=== PATIENT | male | born 1960 | race Caucasian/White ===

== ENCOUNTER 2022-04-14 14:07 | Inpatient (IN) ==
--- NOTE | 2022-04-14 14:15 | DR.CP ---
HPI Time Seen Time Seen by Provider: 04/14/22 14:14 PE Vitals Vitals: Temperature 98.0 F Pulse Rate 44 Respiratory Rate 20 Blood Pressure 140/71 O2 Sat by Pulse Oximetry 94 ROR Labs Reviewed Result Diagrams: 04/23/22 04:40 04/23/22 04:40 Laboratory: 04/14/22 14:48 Blood Blood Culture - Final 04/14/22 15:22 Blood Blood Culture - Final WBC 7.3 X10^3/uL (3.6-10.0) 04/14/22 14:48 RBC 3.29 X10^6/uL (4.7-6.0) L 04/14/22 14:48 Hgb 11.6 g/dL (13.5-18.0) L 04/14/22 14:48 Hct 34.5 % (42.0-54.0) L 04/14/22 14:48 MCV 104.9 fL (80.0-100.0) H 04/14/22 14:48 MCH 35.3 pg (27.0-34.0) H 04/14/22 14:48 MCHC 33.6 g/dL (33.0-35.0) 04/14/22 14:48 RDW 14.6 % (11.6-16.5) 04/14/22 14:48 Plt Count 299 X10^3/uL (150.0-450.0) 04/14/22 14:48 MPV 6.8 fL (7.4-11.0) L 04/14/22 14:48 Neut % (Auto) 74.4 % (42.0-75.0) 04/14/22 14:48 Lymph % (Auto) 11.8 % (21.0-51.0) L 04/14/22 14:48 [place] % (Auto) 13.3 % (0.0-13.0) H 04/14/22 14:48 Eos % (Auto) 0.1 % (0.9-2.9) L 04/14/22 14:48 Baso % (Auto) 0.4 % (0.2-1.0) 04/14/22 14:48 Neut # (Auto) 5.4 x10^3/uL (2.2-4.8) H 04/14/22 14:48 Lymph # (Auto) 0.9 X10^3/uL (1.3-2.9) L 04/14/22 14:48 [place] # (Auto) 1.0 x10^3/uL (0.3-0.8) H 04/14/22 14:48 Eos # (Auto) 0.0 x10^3/uL (0.0-0.2) 04/14/22 14:48 Baso # (Auto) 0.0 X10^3/uL (0.0-0.1) 04/14/22 14:48 Absolute Nucleated RBC 0.1 /100WBC 04/14/22 14:48 D-Dimer 2.51 ug/ml (0.0-0.57) H 04/14/22 14:48 Sodium 131 mmol/L (136-145) L 04/14/22 14:48 Corrected Sodium 132 mmol/L (136-145) L 04/14/22 14:48 Potassium 4.7 mmol/L (3.5-5.1) 04/14/22 14:48 Chloride 96 mmol/L (98-107) L 04/14/22 14:48 Carbon Dioxide 27.0 mmol/L (21-32) 04/14/22 14:48 BUN 53 mg/dL (7-18) H 04/14/22 14:48 Creatinine 1.64 mg/dL (0.70-1.30) H 04/14/22 14:48 Est GFR (MDRD) Af Amer 55 (>60) L 04/14/22 14:48 Est GFR (MDRD) Non-Af 45 (>60) L 04/14/22 14:48 Glucose 134 mg/dL (65-99) H 04/14/22 14:48 Lactic Acid 1.5 mmol/L (0.4-2.0) 04/14/22 14:48 Calcium 9.0 mg/dL (8.5-10.1) 04/14/22 14:48 Corrected Calcium 9.9 mg/dL (8.5-10.1) 04/14/22 14:48 Total Bilirubin 0.60 mg/dL (0.2-1.0) 04/14/22 14:48 AST 26 Units/L (15-37) 04/14/22 14:48 ALT 27 Units/L (12-78) 04/14/22 14:48 Alkaline Phosphatase 88 Units/L (46-116) 04/14/22 14:48 Creatine Kinase 98 Units/L (39-308) 04/14/22 14:48 Troponin I High Sens 17.6 ng/L (4.0-60.0) 04/14/22 14:48 B-Natriuretic Peptide 529 pg/mL (0-79) H* 04/14/22 14:48 Total Protein 8.2 g/dL (6.4-8.2) 04/14/22 14:48 Albumin 2.9 g/dL (3.4-5.0) L 04/14/22 14:48 Globulin 5.3 g/dL (2.5-4.5) H 04/14/22 14:48 Albumin/Globulin Ratio 0.5 Ratio (1.1-2.1) L 04/14/22 14:48 SARS-CoV-2 (PCR) Negative (NEGATIVE) 04/14/22 16:47 Influenza Type A (PCR) Negative (NEGATIVE) 04/14/22 16:47 Influenza Type B (PCR) Negative (NEGATIVE) 04/14/22 16:47 RSV (PCR) Negative (NEGATIVE) 04/14/22 16:47 Opioid Opioid Risk Tool Total: 0 Total Score Risk Category: Low Risk Copyright: Manny SUTHERLAND predicting aberrant behaviors Discharge Plan Discharge Plan Patient Disposition: 09 ADMITTED INPATIENT Condition: Stable
[2022-04-14 15:04] LABS: BASOPHILS % (AUTO) 0.4 % (0.2-1.0); EOSINOPHILS % (AUTO) 0.1 % (0.9-2.9); HEMATOCRIT 34.5 % (42.0-54.0); HEMOGLOBIN 11.6 g/dL (13.5-18.0); LYMPHOCYTES # (AUTO) 0.9 X10^3/uL (1.3-2.9); LYMPHOCYTES % (AUTO) 11.8 % (21.0-51.0); MEAN CORPUSCULAR HEMOGLOBIN 35.3 pg (27.0-34.0); MEAN CORPUSCULAR HGB CONC 33.6 g/dL (33.0-35.0); MEAN CORPUSCULAR VOLUME 104.9 fL (80.0-100.0); MEAN PLATELET VOLUME 6.8 fL (7.4-11.0); MONOCYTES % (AUTO) 13.3 % (0.0-13.0); NEUTROPHILS # (AUTO) 5.4 x10^3/uL (2.2-4.8); NEUTROPHILS % (AUTO) 74.4 % (42.0-75.0); RED BLOOD COUNT 3.29 X10^6/uL (4.7-6.0); RED CELL DISTRIBUTION WIDTH 14.6 % (11.6-16.5); WHITE BLOOD COUNT 7.3 X10^3/uL (3.6-10.0)
[2022-04-14 15:30] LABS: ALBUMIN 2.9 g/dL (3.4-5.0); COR CA(FOR HYPOALB) 9.9 mg/dL (8.5-10.1); CREATININE 1.64 mg/dL (0.70-1.30); LACTIC ACID 1.5 mmol/L (0.4-2.0); TOTAL PROTEIN 8.2 g/dL (6.4-8.2)
--- NOTE | 2022-04-14 15:34 | RAD ---
HISTORYChest painSTUDYAP chestCOMPARISONNoneFINDINGSHeart size is within normal limits. The lungs are symmetrically inflated and clear of infiltrates. There is no evidence for pneumonia, pulmonary edema or pleural effusion.IMPRESSIONNo acute chest findings.Electronically signed by: FATMATA HUA (Apr 14, 2022 15:33:25)
[2022-04-14] MEDS ORDERED: DEMEROL INJ IVP ONE (15:43)
[2022-04-14] MEDS ORDERED: ZOFRAN INJ 4 MG VIAL IVP ONE (15:43)
[2022-04-14] MEDS ORDERED: ZOFRAN INJ 4 MG VIAL ONE (15:49)
[2022-04-14] MEDS ORDERED: DEMEROL INJ ONE (15:49)
[2022-04-14] MEDS ORDERED: PHARMACY CONSULT - VANCOMYCIN XX SCH (20:22)
[2022-04-14] MEDS ORDERED: ZOFRAN INJ 4 MG VIAL IVP PRN (20:22)
[2022-04-14] MEDS: NS 1,000 ML IV 1,000 ML IV SCH (20:49)
[2022-04-14] MEDS: DEMEROL INJ IVP PRN (20:55)
[2022-04-14] MEDS ORDERED: VANCOMYCIN IV *PREMIX 2 G/400 ML BAG 2 G/400 ML PIGGYBACK IV ONE (21:00)
[2022-04-15 02:40] LABS: BASOPHILS % (AUTO) 0.7 % (0.2-1.0); EOSINOPHILS % (AUTO) 0.2 % (0.9-2.9); HEMATOCRIT 32.6 % (42.0-54.0); HEMOGLOBIN 11.1 g/dL (13.5-18.0); LYMPHOCYTES # (AUTO) 0.9 X10^3/uL (1.3-2.9); LYMPHOCYTES % (AUTO) 18.5 % (21.0-51.0); MEAN CORPUSCULAR HEMOGLOBIN 35.4 pg (27.0-34.0); MEAN CORPUSCULAR VOLUME 104.3 fL (80.0-100.0); MEAN PLATELET VOLUME 6.6 fL (7.4-11.0); MONOCYTES # (AUTO) 0.7 x10^3/uL (0.3-0.8); MONOCYTES % (AUTO) 14.7 % (0.0-13.0); NEUTROPHILS # (AUTO) 3.1 x10^3/uL (2.2-4.8); NEUTROPHILS % (AUTO) 65.9 % (42.0-75.0); RED BLOOD COUNT 3.12 X10^6/uL (4.7-6.0); RED CELL DISTRIBUTION WIDTH 14.6 % (11.6-16.5); WHITE BLOOD COUNT 4.7 X10^3/uL (3.6-10.0)
[2022-04-15 02:48] LABS: ALANINE AMINOTRANSFERASE 27 Units/L (12-78); ALBUMIN 2.6 g/dL (3.4-5.0); ALKALINE PHOSPHATASE 83 Units/L (46-116); ASPARTATE AMINO TRANSFERASE 19 Units/L (15-37); BLOOD UREA NITROGEN 49 mg/dL (7-18); CALCIUM 8.9 mg/dL (8.5-10.1); CARBON DIOXIDE 26.5 mmol/L (21-32); CHLORIDE 99 mmol/L (98-107); COR NA(FOR HYPERGLY) 135 mmol/L (136-145); CREATININE 1.35 mg/dL (0.70-1.30); SODIUM 134 mmol/L (136-145); TOTAL PROTEIN 7.5 g/dL (6.4-8.2); eGFR NON BLACK RACES 57 (>60)
[2022-04-15] MEDS: DEMEROL INJ IVP PRN ×2 (04:50→09:05)
--- NOTE | 2022-04-15 07:29 | RAD ---
HISTORYChest painSTUDYChest AP [id number]/2022FINDINGSPati ent is rotated to the left. Heart is mildly enlarged. No congestive heart failure is noted. No acute alveolar infiltrates or pleural effusions are identified. Bony thorax is unremarkable.IMPRESSIONMild cardiomegaly without congestive heart failureLungs clearElectronically signed by: MANE TOURE (Apr 15, 2022 07:27:37)
[2022-04-15] MEDS ORDERED: VANCOMYCIN IV *PREMIX 1 G/200 ML BAG 1 G/200 ML PIGGYBACK IV SCH (07:30)
[2022-04-15] MEDS ORDERED: PERCOCET TAB 5/325 MG PO PRN (08:41)
[2022-04-15] MEDS: PERCOCET TAB 5/325 MG PO PRN ×2 (08:45→17:23)
[2022-04-15] MEDS ORDERED: ALLEGRA ONE (08:46)
[2022-04-15] MEDS: VANCOMYCIN IV *PREMIX 1 G/200 ML BAG 1 G/200 ML PIGGYBACK IV SCH ×3 (08:51→20:38)
[2022-04-15] MEDS: NORVASC TAB 5 MG PO SCH (08:52)
[2022-04-15] MEDS: ASPIRIN EC 81 MG PO SCH (08:52)
[2022-04-15] MEDS: NEURONTIN CAP 400 MG PO SCH ×3 (08:52→21:06)
[2022-04-15] MEDS: REGLAN TAB 10 MG PO SCH ×4 (08:52→20:08)
[2022-04-15] MEDS: ALLEGRA PO SCH (08:52)
[2022-04-15] MEDS: LOVENOX INJ 40 MG SYR SC SCH (08:53)
[2022-04-15] MEDS: EMTRICITABINE TENOFOVIR PO SCH (08:57)
[2022-04-15] MEDS: DARUNAVIR ETHANOLATE 600 MG PO SCH ×2 (08:57→20:17)
[2022-04-15] MEDS: VALGANCICLOVIR 450 MG PO SCH (08:57)
[2022-04-15] MEDS ORDERED: TORADOL 15 MG VIAL IVP PRN (08:58)
[2022-04-15] MEDS ORDERED: [UNRECOGNIZED DRUG - OTHER] PO SCH (09:00)
[2022-04-15] MEDS ORDERED: GLUCOSAMINE D3 BOSWELLIA SERR PO SCH (09:00)
[2022-04-15] MEDS ORDERED: MOMETASONE 0.1% TOP SCH (09:00)
[2022-04-15] MEDS ORDERED: TRUVADA PO ONE (09:00)
[2022-04-15] MEDS ORDERED: ISENTRESS PO ONE (09:00)
[2022-04-15] MEDS: PROTONIX TAB 40 MG PO SCH (09:05)
[2022-04-15 10:00] LABS: URIC ACID 12.5 mg/dL (3.5-7.2)
[2022-04-15] MEDS ORDERED: TORADOL 15 MG VIAL IVP SCH (11:00)
[2022-04-15] MEDS: NS 1,000 ML IV 1,000 ML IV SCH ×2 (12:03→20:52)
[2022-04-15] MEDS: ALDACTONE TAB 25 MG PO SCH (12:10)
[2022-04-15] MEDS: LASIX PO SCH ×2 (12:11→20:08)
--- NOTE | 2022-04-15 12:25 | DR.H&P ---
H&P - History & Physical for Day of: H&P Date: 04/14/22 - Chief Complaint Chief Complaint: CHEST PAIN, RIGHT WRIST PAIN, BLE SWELLING, REDNESS, DRAINAGE - History of Present Illness History of Present Illness: IS A 61 YEAR OLD WHITE MALE. HE IS A PATIENT OF [facility]. HE PRESENTED TO THE ER WITH COMPLAINTS OF CHEST PAIN WITH RADIATION TO THE RIGHT ARM AND WRIST. HE DESCRIBES CHEST PAIN DULL, INTERMITTENT, AND RATED IT A 4/10 ON ARRIVAL. HE DESCRIBED RIGHT ARM AND WRIST PAIN DULL, THROBBING, AND RATED IT A 9/10. PATIENT WAS ALSO NOTED TO HAVE LOWER EXTREMITY 2+ PITTING EDEMA, ERRYTHEMA, AND WEEPING. SKIN WAS NOTED TO BE SCALY. HIS PMH INCLUDES: CHF, COPD, HTN, RENAL DISEASE, ATRIAL FIBRILLATION, AND HIV. ON ARRIVAL, HIS VITALS WERE: 98.0-20-60-94%-140/71. LABS WERE OBTAINED. WBC 7.3, RBC 3.29, HGB 11.6, HCT 34.5, PLT COUNT 299, D-DIMER 2.51, SODIUM 132, POTASSIUM 4.7, CHLORIDE 96, BUN 53, CREATININE 1.64, GLUCOSE 134, LACTIC ACID 1.5, URIC ACID 12.5, CALCIUM 9.0, AST 26, ALT 27, ALK PHOS 88, CREATINE KINASE 98, TROPONIN 17.6, BNP 529, TOTAL PROTEIN 8.2, ALBUMIN 2.9, CRP 128.70. COVID, INFLUENZA, AND RSV NEGATIVE. BLOOD CULTURES WERE SET UP. EKG OBTAINED AND REVEALED: NSR WITH HR 66. A CHEST XRAY WAS OBTAINED AND REVEALED: Heart size is within normal limits. The lungs are symmetrically inflated and clear of infiltrates. There is no evidence for pneumonia, pulmonary edema or pleural effusion. IN THE ER, SHE WAS GIVEN DEMEROL 25MG IV X 1, ZOFRAN 4MG IV X 1, VANCOMYCIN 2G IV X 1. HE WAS ADMITTED TO THE HOSPTIAL FOR FURTHER EVALUATION AND TREATMENT OF CHEST PAIN RULE OUT ACUTE ME, BILATERAL LOWER EXTREMITY CELLULITIS, AND GOUT FLARE. HE WAS STARTED ON NORMAL SALINE AT KVO, VANCOMYCIN 1G IV Q8H, TORADOL 15MG IV Q8H, DILAUDID 2MG IV Q6H PRN, ZOFRAN 4MG IV Q8H, LOVENOX 40MG SC DAILY, COLACE 100MG BID, MILK OF MAGNESIA 30ML PO BID. HIS HOME MEDICATIONS OF NORVASC, ECOTRIN, COLEMAN, LASIX, NEURONTIN, REGLAN, PROTONIX, PERCOCET, ALDACTONE, DESYREL, KENALOG CREAM, AND HIS ANTIVIRALS WERE RESUMED. OTHERWISE, WE PLAN TO FOLLOW-UP WITH AM LABS AND CONTINUE TO MONITOR. TIME SPENT ON CLINICAL ASSESSMENT, REVIWING LABS AND IMAGING, DECISION MAKING, AND DOCUMENTATION GREATER THAN 75 MINUTES. - Past Medical History Past Medical History: CHF, COPD, Hypertension, Renal Disease - Past Surgical History Surgical History: Cholecystectomy, Ortho Surgery, Other - Family History Family Medical History: Cancer, Coronary Artery Disease, Hypertension - Social History Does patient currently use any type of tobacco product: Yes Have you used tobacco products in the last 12 months: Yes Type of Tobacco Use: Cigarettes Does any household member use tobacco: No Alcohol Use: Occasionally Drug Use: None - Medications Home Medications: No Known Drug Allergies Allergy (Verified 04/14/22 18:25) CONTINUE taking the following medications amlodipine 5 mg tablet 5 mg PO QDAY 04/14/22 [History] aspirin 81 mg tablet,delayed release 81 mg PO QDAY 04/14/22 [History] chlorthalidone 25 mg tablet 25 mg PO QDAY 04/14/22 [History] darunavir ethanolate 600 mg tablet (Prezista) 600 mg PO BID 04/14/22 [History] emtricitabine 200 mg-tenofovir disoproxil fumarate 300 mg tablet 1 tab PO QDAY 04/14/22 [History] fexofenadine 180 mg tablet 180 mg PO QDAY 04/14/22 [History] furosemide 40 mg tablet 40 mg PO BID 04/14/22 [History] gabapentin 800 mg tablet 800 mg PO TID 04/14/22 [History] glucosamine BUk-W0-Csimgdhib true 1,500 mg-400 unit-100 mg tablet (Osteo Bi- Flex (5-Loxin)) 1 tab PO QDAY 04/14/22 [History] ketoconazole 2 % shampoo 1 applic topical DAILY 04/14/22 [History] metoclopramide HCl 10 mg tablet 10 mg PO QID 04/14/22 [History] mometasone 0.1 % topical cream 1 applic topical DIRECTED 04/14/22 [History] oxycodone-acetaminophen 10 mg-325 mg tablet 1 tab PO Q4H PRN 04/14/22 [History] pantoprazole 40 mg tablet,delayed release 40 mg PO QDAY 04/14/22 [History] raltegravir 400 mg tablet (Isentress) 400 mg PO BID 04/14/22 [History] ritonavir 100 mg tablet 100 mg PO BID 04/14/22 [History] spironolactone 25 mg tablet 25 mg PO QDAY 04/14/22 [History] trazodone 150 mg tablet 150 mg PO QPM 04/14/22 [History] umeclidinium 62.5 mcg/actuation blister powder for inhalation (Incruse Ellipta) 1 puff inhalation QDAY 04/14/22 [History] valganciclovir 450 mg tablet 900 mg PO QDAY 04/14/22 [History] - Review of Systems Constitutional: Weakness Eyes: No Symptoms Reported ENT: No Symptoms Reported Respiratory: Shortness of Breath Cardiovascular: Chest Pain Gastrointestinal: No Symptoms Reported Genitourinary: No Symptoms Reported Musculoskeletal: See HPI, Arm Pain (RIGHT ARM PAIN, RIGHT WRIST PAIN ) Skin: See HPI Neurological: Weakness - Physical Exam Vital Signs: Temperature 98.4 F Pulse Rate [Apical] 47 Pulse Rate 48 Respiratory Rate 18 Blood Pressure [Left Arm] 121/61 Blood Pressure 140/71 O2 Sat by Pulse Oximetry 94 Oriented: Normal Eyes: Normal Ear: Normal Nose: Normal Throat: Normal Respiratory: Diminished Throughout Cardiovascular: Normal : Normal Auscultation: Bowel Sounds: Normal Palpation: Normal Tenderness: Normal Skin: Red, Tender, Hot Musculoskeletal: Right, Forearm, Wrist, Swelling, Tender Psychiatric: Normal Mood Description: Calm Affect: Normal Speech Pattern: Clear - Assessment/Plan (1) Bilateral lower leg cellulitis Status: Acute Plan: ADMIT, NORMAL SALINE AT KVO, VANCOMYCIN 1G IV Q8H, TORADOL 15MG IV Q8H, DILAUDID 2MG IV Q6H PRN, ZOFRAN 4MG IV Q8H, LOVENOX 40MG SC DAILY, COLACE 100MG BID, MILK OF MAGNESIA 30ML PO BID. MONITOR LABS (2) Gout flare Qualifiers: Gout site: wrist Encounter type: initial encounter Status: Acute Plan: SERIAL CARDIAC ENZYMES AND EKGS (3) Chest pain, rule out acute myocardial infarction Status: Acute (4) CHF (congestive heart failure) Qualifiers: Heart failure type: unspecified Heart failure chronicity: chronic Qualified Code(s): I50.9 - Heart failure, unspecified Status: Chronic (5) COPD (chronic obstructive pulmonary disease) Qualifiers: COPD type: unspecified COPD Qualified Code(s): J44.9 - Chronic obstructive pulmonary disease, unspecified Status: Chronic (6) HTN (hypertension) Qualifiers: Hypertension type: primary hypertension Qualified Code(s): I10 - Essential (primary) hypertension Status: Chronic (7) Renal disease Status: Chronic (8) HIV (human immunodeficiency virus infection) Qualifiers: HIV symptom status: unspecified Qualified Code(s): B20 - Human immunodeficiency virus [HIV] disease Status: Chronic - Allergies Allergies/Adverse Reactions: Allergies Allergy/AdvReac Type Severity Reaction Status Date / Time No Known Drug Allergies Allergy Verified 04/14/22 18:25
[2022-04-15] MEDS ORDERED: DILAUDID INJ IVP ONE (12:55)
--- NOTE | 2022-04-15 13:53 | RAD ---
HISTORYCENTRAL LINE PLACEMENT.br AFIB, HIV, CHF, COPD, HTN, RENAL DISEASE, ORTHO.brSTUDYCHEST, 1 VIEWCOMPARISONAugust 2021.FINDINGSThe trachea is midline. The cardiac silhouette is enlarged. Chronic lung changes remain. There is a abnormally position right-sided CVL seen in place which extends into the right neck region and which should be repositioned into the SVC for optimal positioning. No pneumothorax is identified on this examination, however. The remaining lungs are clear without focal infiltrate or effusion. The bony thorax is unremarkable.IMPRESSIONAs above.Electronically signed by: YASIR WEN III (Apr 15, 2022 13:52:24)
--- NOTE | 2022-04-15 14:59 | RAD ---
HISTORYPain and swelling right armSTUDYRight wrist three viewsCOMPARISONNoneFINDINGSThere is no evidence for fracture or other recent injury. Joint spaces are maintained with no erosion, specific arthritis, bone destruction or soft tissue calcification.IMPRESSIONNo acute findings.Electronically signed by: FATMATA HUA (Apr 15, 2022 14:58:44)
--- NOTE | 2022-04-15 15:02 | RAD ---
HISTORYArm swellingSTUDYRight forearm two viewsCOMPARISONNoneFINDINGSThe radius and ulna appear normal and there is no evidence for fracture, displacement or osteolytic involvement. Soft tissue swelling of the forearm is suggested.IMPRESSIONNo osseous abnormality demonstrated.Electronically signed by: FATMATA HUA (Apr 15, 2022 15:00:38)
[2022-04-15] MEDS ORDERED: INDOCIN CAP 25 MG PO PRN (17:57)
[2022-04-15] MEDS ORDERED: INDOCIN CAP 25 MG PO ONE (18:05)
[2022-04-15] MEDS: COLACE CAP 100 MG PO SCH (20:08)
[2022-04-15] MEDS: DESYREL PO SCH (20:08)
[2022-04-15] MEDS: DILAUDID INJ IVP PRN (20:13)
[2022-04-15] MEDS: MILK OF MAGNESIA PO SCH (20:17)
[2022-04-16] MEDS: PERCOCET TAB 5/325 MG PO PRN ×3 (00:20→17:24)
[2022-04-16] MEDS: DILAUDID INJ IVP PRN ×4 (03:56→21:50)
[2022-04-16 04:24] LABS: HEMOGLOBIN 10.9 g/dL (13.5-18.0); WHITE BLOOD COUNT 3.9 X10^3/uL (3.6-10.0)
[2022-04-16 04:27] LABS: BASOPHILS % (AUTO) 0.7 % (0.2-1.0); EOSINOPHILS % (AUTO) 0.3 % (0.9-2.9); HEMATOCRIT 31.7 % (42.0-54.0); MEAN CORPUSCULAR HEMOGLOBIN 35.6 pg (27.0-34.0); MEAN CORPUSCULAR HGB CONC 34.4 g/dL (33.0-35.0); MEAN CORPUSCULAR VOLUME 103.7 fL (80.0-100.0); MEAN PLATELET VOLUME 6.7 fL (7.4-11.0); MONOCYTES # (AUTO) 0.6 x10^3/uL (0.3-0.8); NEUTROPHILS # (AUTO) 2.2 x10^3/uL (2.2-4.8); RED BLOOD COUNT 3.05 X10^6/uL (4.7-6.0); RED CELL DISTRIBUTION WIDTH 14.3 % (11.6-16.5)
[2022-04-16 04:32] LABS: ALANINE AMINOTRANSFERASE 35 Units/L (12-78); ALBUMIN 2.5 g/dL (3.4-5.0); ALKALINE PHOSPHATASE 77 Units/L (46-116); ASPARTATE AMINO TRANSFERASE 22 Units/L (15-37); BLOOD UREA NITROGEN 40 mg/dL (7-18); CALCIUM 8.7 mg/dL (8.5-10.1); CARBON DIOXIDE 28.1 mmol/L (21-32); CHLORIDE 101 mmol/L (98-107); COR CA(FOR HYPOALB) 9.9 mg/dL (8.5-10.1); CREATININE 1.33 mg/dL (0.70-1.30); MAGNESIUM 1.9 mg/dL (1.7-2.9); SODIUM 136 mmol/L (136-145); TOTAL PROTEIN 7.4 g/dL (6.4-8.2); eGFR NON BLACK RACES 58 (>60)
[2022-04-16 04:36] LABS: VANCOMYCIN,TROUGH 17.5 ug/mL (15-20)
[2022-04-16] MEDS: VANCOMYCIN IV *PREMIX 1 G/200 ML BAG 1 G/200 ML PIGGYBACK IV SCH ×3 (04:44→22:08)
[2022-04-16] MEDS: NEURONTIN CAP 400 MG PO SCH ×3 (04:59→21:45)
[2022-04-16] MEDS ORDERED: PHARMACY COMMENT IV NR (05:30)
[2022-04-16] MEDS ORDERED: ALLEGRA ONE (08:20)
[2022-04-16] MEDS ORDERED: ISENTRESS PO ONE (09:00)
[2022-04-16 10:31] VITALS: BMI 38.5
[2022-04-16] MEDS: REGLAN TAB 10 MG PO SCH ×4 (13:10→21:47)
[2022-04-16] MEDS: LOVENOX INJ 40 MG SYR SC SCH (13:48)
--- NOTE | 2022-04-16 14:06 | RAD ---
CHEST, 1 VIEWHISTORY: Line placementStudy: Single view of the chest.Comparison: NoneFindings:No change in the appearance of cardiopulmonary structures. A right central catheter terminates over the expected area of the SVC.IMPRESSION:1.No change in the appearance of cardiopulmonary structures.2. A right central catheter terminating over the expected area of the SVC.Electronically signed by: MERVIN OLMEDO (Apr 16, 2022 14:04:34)
[2022-04-16] MEDS: AQUAPHOR TOP SCH (15:04)
[2022-04-16] MEDS: GENTAMICIN TOPICAL CRM TOP SCH ×2 (15:05→21:48)
[2022-04-16] MEDS: VALGANCICLOVIR 450 MG PO SCH (15:05)
[2022-04-16] MEDS: LASIX PO SCH ×2 (15:06→21:46)
[2022-04-16] MEDS: ALLEGRA PO SCH (15:08)
[2022-04-16] MEDS: ALDACTONE TAB 25 MG PO SCH (15:08)
[2022-04-16] MEDS: NORVASC TAB 5 MG PO SCH (15:09)
[2022-04-16] MEDS: PROTONIX TAB 40 MG PO SCH (15:09)
[2022-04-16] MEDS: KENALOG CREAM TOP SCH (15:10)
[2022-04-16] MEDS: DARUNAVIR ETHANOLATE 600 MG PO SCH (15:11)
[2022-04-16] MEDS: ASPIRIN EC 81 MG PO SCH (15:11)
--- NOTE | 2022-04-16 15:17 | CT ---
HISTORYchest pain, elevated ddimerSTUDYCTA CHESTCOMPARISONChest radiograph from same day.TECHNIQUECTA chest protocol with axial images from the thoracic inlet to upper abdomen with IV contrast. Sagittal and coronal reformats and MIP images were created. Automated exposure control was utilized.FINDINGSThe visualized thyroid gland appears benign. Mildly atherosclerotic normal caliber thoracic aorta. Mild motion artifact limits evaluation but there is likely a filling defect in the anterior branch of the left lower lobe pulmonary artery image 81 and image 92 of series 4. No CT evidence of right heart strain. The heart is normal in size. No pericardial effusion. No pathologic adenopathy in the thorax. Status post cholecystectomy. There are chronic bilateral rib fractures, more numerous on the left. No acute osseous abnormality. Chronic compression deformity at L1 secondary to inferior endplate Schmorl's node. The trachea and mainstem bronchi appear patent. Mild COPD. 4 x 2 mm left upper lobe pulmonary nodule image 25 series 5. There are multiple other scattered bilateral less than 6 mm average axial dimension pulmonary nodules. Opacity likely subsegmental atelectasis along the anterior margin of the left major fissure in the lingula image 83 series 5. 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 Consider 3-6 months follow-up to document stability.Electronically signed by: Darrell Stanley (Apr 16, 2022 15:15:52)
[2022-04-16] MEDS: INDOCIN CAP 25 MG PO SCH (15:47)
[2022-04-16 16:50] LABS: ERYTHROCYTE SEDIMENTATION RATE 109 MM/HOUR (0-15)
[2022-04-16 17:48] LABS: T4 (THYROXINE) 7.7 ug/dL (4.7-13.3); TSH (3RD GENERATION) 1.059 uIU/mL (0.358-3.74)
[2022-04-16] MEDS: NS 1,000 ML IV 1,000 ML IV SCH (18:00)
[2022-04-16] MEDS: EMTRICITABINE TENOFOVIR PO SCH (18:34)
--- NOTE | 2022-04-16 18:36 | VAS ---
Ultrasound bilateral lower extremity venous DopplerIndication: Swelling.TECHNIQUEDynamic grayscale, color spectral Doppler imaging through the bilateral lower extremity veins compression techniques spectral analysisFINDINGSThe bilateral common femoral veins, superficial femoral veins throughout their lengths and popliteal veins are patent and compressible with normal respiratory phasicity. Bilateral posterior tibial veins are patentIMPRESSIONNo left lower extremity or right lower extremity deep vein thrombosisElectronically signed by: RAY LA (Apr 16, 2022 18:35:50)
[2022-04-16] MEDS ORDERED: PHARMACY COMMENT IV ONE (21:30)
[2022-04-16] MEDS: MILK OF MAGNESIA PO SCH (21:45)
[2022-04-16] MEDS: COLACE CAP 100 MG PO SCH (21:46)
[2022-04-16] MEDS: ELIQUIS PO SCH (21:46)
[2022-04-16] MEDS: DESYREL PO SCH (21:46)
[2022-04-16] MEDS: ISENTRESS PO SCH (21:47)
[2022-04-16 21:48] LABS: CREATININE 0.95 mg/dL (0.70-1.30)
[2022-04-16 21:53] LABS: VANCOMYCIN,TROUGH 21.7 ug/mL (15-20)
[2022-04-17] MEDS: NS 1,000 ML IV 1,000 ML IV SCH ×2 (00:02→13:35)
[2022-04-17] MEDS ORDERED: VANCOMYCIN IV *PREMIX 1 G/200 ML BAG 1 G/200 ML PIGGYBACK IV SCH (01:00)
[2022-04-17] MEDS: PERCOCET TAB 5/325 MG PO PRN ×3 (01:40→19:44)
[2022-04-17 05:34] LABS: BASOPHILS % (AUTO) 0.6 % (0.2-1.0); EOSINOPHILS % (AUTO) 0.6 % (0.9-2.9); HEMATOCRIT 32.6 % (42.0-54.0); LYMPHOCYTES # (AUTO) 0.9 X10^3/uL (1.3-2.9); LYMPHOCYTES % (AUTO) 22.3 % (21.0-51.0); MEAN CORPUSCULAR HEMOGLOBIN 35.1 pg (27.0-34.0); MEAN CORPUSCULAR HGB CONC 33.7 g/dL (33.0-35.0); MEAN PLATELET VOLUME 6.7 fL (7.4-11.0); MONOCYTES # (AUTO) 0.6 x10^3/uL (0.3-0.8); MONOCYTES % (AUTO) 15.6 % (0.0-13.0); NEUTROPHILS # (AUTO) 2.5 x10^3/uL (2.2-4.8); NEUTROPHILS % (AUTO) 60.9 % (42.0-75.0); RED BLOOD COUNT 3.13 X10^6/uL (4.7-6.0); WHITE BLOOD COUNT 4.1 X10^3/uL (3.6-10.0)
[2022-04-17 05:41] LABS: ALANINE AMINOTRANSFERASE 48 Units/L (12-78); ALBUMIN 2.6 g/dL (3.4-5.0); ALKALINE PHOSPHATASE 78 Units/L (46-116); ASPARTATE AMINO TRANSFERASE 28 Units/L (15-37); BLOOD UREA NITROGEN 34 mg/dL (7-18); CALCIUM 8.7 mg/dL (8.5-10.1); CARBON DIOXIDE 30.1 mmol/L (21-32); CHLORIDE 102 mmol/L (98-107); COR CA(FOR HYPOALB) 9.8 mg/dL (8.5-10.1); CREATININE 1.15 mg/dL (0.70-1.30); SODIUM 136 mmol/L (136-145); TOTAL PROTEIN 7.7 g/dL (6.4-8.2); eGFR NON BLACK RACES > 60 (>60)
[2022-04-17] MEDS: DILAUDID INJ IVP PRN ×4 (05:50→22:45)
[2022-04-17] MEDS: NEURONTIN CAP 400 MG PO SCH (05:50)
--- NOTE | 2022-04-17 08:11 | RAD ---
HISTORYShort of breathSTUDYCHEST, 1 [id number]/24/2022FINDINGSThe lungs are clear. No pneumothorax or significant effusion.Heart size is normal.Bones are unremarkable. [EKG leads are noted. Right subclavian central venous catheter is in the expected location of the superior vena cava. ]IMPRESSION1. No significant abnormalityElectronically signed by: Shayne Vidal (Apr 17, 2022 08:10:00)
[2022-04-17] MEDS ORDERED: TRUVADA PO SCH (09:00)
[2022-04-17] MEDS: ELIQUIS PO SCH ×2 (09:32→21:55)
[2022-04-17] MEDS: ALDACTONE TAB 25 MG PO SCH (09:32)
[2022-04-17] MEDS: CHLORTHALIDONE PO SCH (09:33)
[2022-04-17] MEDS: GENTAMICIN TOPICAL CRM TOP SCH ×2 (09:34→21:29)
[2022-04-17] MEDS: INDOCIN CAP 25 MG PO SCH ×2 (09:34→21:31)
[2022-04-17] MEDS: LASIX PO SCH ×2 (09:35→21:55)
[2022-04-17] MEDS: KENALOG CREAM TOP SCH (09:35)
[2022-04-17] MEDS: VANCOMYCIN IV *PREMIX 1 G/200 ML BAG 1 G/200 ML PIGGYBACK IV SCH ×2 (09:36→21:55)
[2022-04-17] MEDS: PATIENT'S HOME MEDICATION PO SCH ×13 (10:10→21:31)
[2022-04-17] MEDS: ASPIRIN EC 81 MG PO SCH (10:12)
[2022-04-17] MEDS: REGLAN TAB 10 MG PO SCH (10:12)
[2022-04-17] MEDS: ALLEGRA PO SCH (10:12)
[2022-04-17] MEDS: NORVASC TAB 5 MG PO SCH (10:13)
[2022-04-17] MEDS: PROTONIX TAB 40 MG PO SCH (10:13)
[2022-04-17] MEDS: ISENTRESS PO SCH (10:13)
--- NOTE | 2022-04-17 14:15 | PCM.PROG ---
Progress Note - Progress Note for Day of Date of Exam: 04/16/22 - Subjective Subjective: IS CURRENTLY INPATIENT STATUS FOR TREATMENT OF BILATERAL LOWER LEG CELLULITIS, GOUT FALRE, AND CHEST PAIN RULE OUT ACUTE NE. HE HAS A PMH OF CHF, COPD, HTN, RENAL DISEASE, AND HIV. TODAY, HE IS ALERT AND ORIENTED, LYING IN BED ON MORNING ROUNDS. HE DENIES CHEST PAIN THIS MORNING. HE COMPLAINS OF WEAKNESS AND SHORTNESS OF BREATH AT TIMES. HE ALSO COMPLAINS OF GENERALIZED PAIN. ON EXAMINATION, HE IS BRADYCARDIC WITH HR IN THE 30s-40s. HR HAS BEEN IN THE 30s-50s SINCE YESTERDAY. BILATERAL LUNGS ARE NOTED WITH DIMINISHED LUNG SOUNDS THROUGHOUT. ABDOMEN IS ROUND, SOFT, AND NON-TENDER WITH NORMAL BOWEL SOUNDS NOTED IN ALL QUADRANTS. BILATERAL LOWER EXTREMITIES ARE NOTED WITH ERYT NIMESH, EDEMA, AND 1+ PITTING EDEMA. SOME WEEPING IS NOTED TO RLE. HIS VITALS THIS MORNING ARE: 98.3-40-17-99%-121/60. HE IS UTILIZING OXYGEN VIA NASAL CANNULA AT 2 LPM. LABS WERE OBTAINED. WBC 3.9, RBC 3.05, HGB 10.9, HCT 31.7, SODIUM 136, POTASSIUM 5.1, BUN 40, CREATININE 1.33, GLUCOSE 100, BNP 937, TOTAL PROTEIN 7.4, ALBUMIN 2.5, CRP 63.90. BLOOD CULTURES ARE PENDING. A CHEST CTA WAS OBTAINED THI S MORNING. IT REVEALED: Suspect pulmonary embolus in the anterior segment of the left lower lobe. No CT evidence of right heart strain. Mild COPD. Multiple bilateral less than 6 mm pulmonary nodules may be due to DIP with smoking related lung disease. Consider 3-6 months follow-up to document stability. HE IS CURRENTLY RECEIVING NORMAL SALINE AT [facility], VANCOMYCIN 1G IV Q8H, TORADOL 15MG IV Q8H, DILAUDID 2MG IV Q6H PRN, ZOFRAN 4MG IV Q8H, LOVENOX 40MG SC DAILY, COLACE 100MG BID, MILK OF MAGNESIA 30ML PO BID. HIS HOME MEDICATIONS OF NORVASC, ECOTRIN, COLEMAN, LASIX, NEURONTIN, REGLAN, PROTONIX, PERCOCET, ALDACTONE, DESYREL, KENALOG CREAM, AND HIS ANTIVIRALS WERE RESUMED. TODAY, WE WILL ADD ELIQUIS 10MG PO BID, GENTAMICIN CREAM BID TO LOWER EXTREMITIES, AND AQUAPHOR BID. HE IS NOT ON ANY MEDICATIONS THAT SHOULD BE CAUSING THE LOW HEARTRATE. WE WILL CONSULT CARDIOLOGY DUE TO PERSISTENT BRADYCARDIA. OTHERWISE, WE PLAN TO FOLLOW-UP WITH AM LABS AND CONTINUE TO MONITOR. TIME SPENT ON CLINICAL A SSESSMENT, REVIWING LABS AND IMAGING, DECISION MAKING, AND DOCUMENTATION GREATER THAN 45 MINUTES. - Past Medical Family Social History Past Med/Fam/Surg Hx: No changes since H&P Allergies: Allergies No Known Drug Allergies Allergy (Verified 04/14/22 18:25) - Review of Systems ROS: No change since H&P - Vital Signs and I&O's Vital Signs: Temperature 97.8 F Pulse Rate [Apical] 47 Pulse Rate 50 Respiratory Rate 20 Blood Pressure [Left Arm] 121/61 Blood Pressure 138/63 O2 Sat by Pulse Oximetry 96 Intake and Output: Intake & Output 04/15/22 04/16/22 04/17/22 04/18/22 11:59 11:59 11:59 11:59 Intake Total 1248 / 1248 1376 / 1376 2527 / 2527 Output Total 1250 / 1250 1500 / 1500 3150 / 3150 Balance -2 / -2 -124 / -124 -623 / -623 - Physical Exam Oriented: Normal Eyes: Normal Ear: Normal Nose: Normal Throat: Normal Respiratory: Generalized, Diminished Cardiovascular: Edema (BLE 1+ PITTING EDEMA ) : Normal Auscultation: Bowel Sounds: Normal Palpation: Normal Tenderness: Normal Skin: Red, Tender, Hot Musculoskeletal: Right, Forearm, Wrist, Swelling, Tender Psychiatric: Normal Mood Description: Calm Affect: Normal Speech Pattern: Clear, Appropriate - Laboratory and Diagnostics Result Diagrams: 04/17/22 04:40 04/17/22 04:40 Labs: 04/14/22 15:22 Blood Blood Culture - Preliminary 04/14/22 14:48 Blood Blood Culture - Preliminary Laboratory WBC 4.1 X10^3/uL (3.6-10.0) 04/17/22 04:40 RBC 3.13 X10^6/uL (4.7-6.0) L 04/17/22 04:40 Hgb 11.0 g/dL (13.5-18.0) L 04/17/22 04:40 Hct 32.6 % (42.0-54.0) L 04/17/22 04:40 MCV 104.0 fL (80.0-100.0) H 04/17/22 04:40 MCH 35.1 pg (27.0-34.0) H 04/17/22 04:40 MCHC 33.7 g/dL (33.0-35.0) 04/17/22 04:40 RDW 14.0 % (11.6-16.5) 04/17/22 04:40 Plt Count 313 X10^3/uL (150.0-450.0) 04/17/22 04:40 MPV 6.7 fL (7.4-11.0) L 04/17/22 04:40 Neut % (Auto) 60.9 % (42.0-75.0) 04/17/22 04:40 Lymph % (Auto) 22.3 % (21.0-51.0) 04/17/22 04:40 [place] % (Auto) 15.6 % (0.0-13.0) H 04/17/22 04:40 Eos % (Auto) 0.6 % (0.9-2.9) L 04/17/22 04:40 Baso % (Auto) 0.6 % (0.2-1.0) 04/17/22 04:40 Neut # (Auto) 2.5 x10^3/uL (2.2-4.8) 04/17/22 04:40 Lymph # (Auto) 0.9 X10^3/uL (1.3-2.9) L 04/17/22 04:40 [place] # (Auto) 0.6 x10^3/uL (0.3-0.8) 04/17/22 04:40 Eos # (Auto) 0.0 x10^3/uL (0.0-0.2) 04/17/22 04:40 Baso # (Auto) 0.0 X10^3/uL (0.0-0.1) 04/17/22 04:40 Absolute Nucleated RBC 0.0 /100WBC 04/17/22 04:40 ESR 109 MM/HOUR (0-15) H 04/16/22 16:15 D-Dimer 2.51 ug/ml (0.0-0.57) H 04/14/22 14:48 Sodium 136 mmol/L (136-145) 04/17/22 04:40 Corrected Sodium TNP 04/17/22 04:40 Potassium 5.6 mmol/L (3.5-5.1) H 04/17/22 04:40 Chloride 102 mmol/L (98-107) 04/17/22 04:40 Carbon Dioxide 30.1 mmol/L (21-32) 04/17/22 04:40 BUN 34 mg/dL (7-18) H 04/17/22 04:40 Creatinine 1.15 mg/dL (0.70-1.30) 04/17/22 04:40 Est GFR (MDRD) Af Amer > 60 (>60) 04/17/22 04:40 Est GFR (MDRD) Non-Af > 60 (>60) 04/17/22 04:40 Glucose 90 mg/dL (65-99) 04/17/22 04:40 Lactic Acid 1.5 mmol/L (0.4-2.0) 04/14/22 14:48 Uric Acid 11.0 mg/dL (3.5-7.2) H 04/17/22 04:40 Calcium 8.7 mg/dL (8.5-10.1) 04/17/22 04:40 Corrected Calcium 9.8 mg/dL (8.5-10.1) 04/17/22 04:40 Magnesium 1.9 mg/dL (1.7-2.9) 04/16/22 04:00 Total Bilirubin 0.30 mg/dL (0.2-1.0) 04/17/22 04:40 AST 28 Units/L (15-37) 04/17/22 04:40 ALT 48 Units/L (12-78) 04/17/22 04:40 Alkaline Phosphatase 78 Units/L (46-116) 04/17/22 04:40 Creatine Kinase 76 Units/L (39-308) 04/15/22 02:16 Troponin I High Sens 17.5 ng/L (4.0-60.0) 04/15/22 02:16 C-Reactive Protein 63.90 mg/L (0-3.0) H 04/16/22 16:15 B-Natriuretic Peptide 1200 pg/mL (0-79) H* 04/17/22 04:40 Total Protein 7.7 g/dL (6.4-8.2) 04/17/22 04:40 Albumin 2.6 g/dL (3.4-5.0) L 04/17/22 04:40 Globulin 5.1 g/dL (2.5-4.5) H 04/17/22 04:40 Albumin/Globulin Ratio 0.5 Ratio (1.1-2.1) L 04/17/22 04:40 Thyroxine (T4) 7.7 ug/dL (4.7-13.3) 04/16/22 16:15 TSH 3rd Generation 1.059 uIU/mL (0.358-3.74) 04/16/22 16:15 Vancomycin Trough 21.7 ug/mL (15-20) H* 04/16/22 21:13 Digoxin 0.30 ng/mL (0.9-2) L 04/17/22 04:40 SARS-CoV-2 (PCR) Negative (NEGATIVE) 04/14/22 16:47 Influenza Type A (PCR) Negative (NEGATIVE) 04/14/22 16:47 Influenza Type B (PCR) Negative (NEGATIVE) 04/14/22 16:47 RSV (PCR) Negative (NEGATIVE) 04/14/22 16:47 - Plan (1) Bilateral lower leg cellulitis Status: Acute Plan: NORMAL SALINE AT KVO, VANCOMYCIN 1G IV Q8H, TORADOL 15MG IV Q8H, DILAUDID 2MG IV Q6H PRN, ZOFRAN 4MG IV Q8H, LOVENOX 40MG SC DAILY, COLACE 100MG BID, MILK OF MAGNESIA 30ML PO BID, GENTAMICIN CREAM BID, ELIQUIS 10MG BID. MONITOR LABS (2) Pulmonary embolism Status: Acute Qualifiers: Pulmonary embolism type: unspecified Chronicity: acute Acute cor pulmonale presence: without acute cor pulmonale Qualified Code(s): I26.99 - Other pulmonary embolism without acute cor pulmonale Plan: OBTAIN ECHO (3) Bradycardia Status: Acute (4) Gout flare Status: Acute Qualifiers: Gout site: wrist Encounter type: initial encounter (5) Chest pain, rule out acute myocardial infarction Status: Resolved (6) CHF (congestive heart failure) Status: Chronic Qualifiers: Heart failure type: unspecified Heart failure chronicity: chronic Qualified Code(s): I50.9 - Heart failure, unspecified (7) COPD (chronic obstructive pulmonary disease) Status: Chronic Qualifiers: COPD type: unspecified COPD Qualified Code(s): J44.9 - Chronic obstructive pulmonary disease, unspecified (8) HTN (hypertension) Status: Chronic Qualifiers: Hypertension type: primary hypertension Qualified Code(s): I10 - Essential (primary) hypertension (9) Renal disease Status: Chronic (10) HIV (human immunodeficiency virus infection) Status: Chronic Qualifiers: HIV symptom status: unspecified Qualified Code(s): B20 - Human immunodeficiency virus [HIV] disease
[2022-04-17] MEDS: AQUAPHOR TOP SCH (21:26)
[2022-04-17] MEDS: DARUNAVIR ETHANOLATE 600 MG PO SCH (21:29)
[2022-04-17] MEDS: MILK OF MAGNESIA PO SCH (21:31)
[2022-04-17] MEDS: COLACE CAP 100 MG PO SCH (21:55)
[2022-04-18] MEDS: NS 1,000 ML IV 1,000 ML IV SCH ×2 (03:05→15:28)
[2022-04-18] MEDS: PERCOCET TAB 5/325 MG PO PRN ×3 (03:09→19:46)
[2022-04-18 05:44] LABS: BASOPHILS # (AUTO) 0.2 X10^3/uL (0.0-0.1); BASOPHILS % (AUTO) 3.9 % (0.2-1.0); EOSINOPHILS % (AUTO) 1.2 % (0.9-2.9); HEMATOCRIT 32.2 % (42.0-54.0); LYMPHOCYTES # (AUTO) 0.7 X10^3/uL (1.3-2.9); LYMPHOCYTES % (AUTO) 16.4 % (21.0-51.0); MEAN CORPUSCULAR HEMOGLOBIN 35.4 pg (27.0-34.0); MEAN CORPUSCULAR VOLUME 103.9 fL (80.0-100.0); MEAN PLATELET VOLUME 6.5 fL (7.4-11.0); MONOCYTES # (AUTO) 0.6 x10^3/uL (0.3-0.8); MONOCYTES % (AUTO) 14.9 % (0.0-13.0); NEUTROPHILS # (AUTO) 2.5 x10^3/uL (2.2-4.8); NEUTROPHILS % (AUTO) 63.6 % (42.0-75.0); RED CELL DISTRIBUTION WIDTH 14.1 % (11.6-16.5)
[2022-04-18 05:55] LABS: ALANINE AMINOTRANSFERASE 48 Units/L (12-78); ALBUMIN 2.5 g/dL (3.4-5.0); ALKALINE PHOSPHATASE 76 Units/L (46-116); ASPARTATE AMINO TRANSFERASE 26 Units/L (15-37); BLOOD UREA NITROGEN 33 mg/dL (7-18); CALCIUM 8.7 mg/dL (8.5-10.1); CARBON DIOXIDE 30.6 mmol/L (21-32); CHLORIDE 102 mmol/L (98-107); COR CA(FOR HYPOALB) 9.9 mg/dL (8.5-10.1); CREATININE 1.07 mg/dL (0.70-1.30); SODIUM 137 mmol/L (136-145); TOTAL PROTEIN 7.4 g/dL (6.4-8.2); eGFR NON BLACK RACES > 60 (>60)
--- NOTE | 2022-04-18 06:10 | RAD ---
HISTORYShortness of breathSTUDYChest AP [id number]/25/2022FINDINGSTher e is a right-sided central line with its tip in the superior vena cava. Heart is upper limits normal in size. No congestive heart failure is noted. No definite acute alveolar infiltrates or pleural effusions are identified. Bony thorax is unremarkable.IMPRESSIONNo significant abnormality identifiedElectronically signed by: MANE TOURE (Apr 18, 2022 06:08:50)
[2022-04-18] MEDS: PATIENT'S HOME MEDICATION PO SCH ×11 (06:18→20:40)
[2022-04-18] MEDS: DILAUDID INJ IVP PRN ×4 (06:19→23:50)
[2022-04-18] MEDS ORDERED: INDOCIN CAP 25 MG PO ONE (08:03)
[2022-04-18] MEDS: ALDACTONE TAB 25 MG PO SCH (08:07)
[2022-04-18] MEDS: INDOCIN CAP 25 MG PO SCH ×2 (08:07→20:40)
[2022-04-18] MEDS: ELIQUIS PO SCH ×2 (08:08→20:40)
[2022-04-18] MEDS: CHLORTHALIDONE PO SCH (08:08)
[2022-04-18] MEDS: LASIX PO SCH ×2 (08:08→20:40)
[2022-04-18] MEDS: VANCOMYCIN IV *PREMIX 1 G/200 ML BAG 1 G/200 ML PIGGYBACK IV SCH ×2 (08:10→21:46)
[2022-04-18] MEDS: KENALOG CREAM TOP SCH (08:33)
[2022-04-18] MEDS: AQUAPHOR TOP SCH ×2 (08:33→20:40)
[2022-04-18] MEDS: GENTAMICIN TOPICAL CRM TOP SCH ×2 (08:33→20:40)
[2022-04-18] MEDS: DARUNAVIR ETHANOLATE 600 MG PO SCH ×2 (08:33→20:40)
[2022-04-18] MEDS: VALGANCICLOVIR 450 MG PO SCH (08:35)
--- NOTE | 2022-04-18 10:08 | PCM.PROG ---
Progress Note - Progress Note for Day of Date of Exam: 04/17/22 - Subjective Subjective: IS CURRENTLY INPATIENT STATUS FOR TREATMENT OF BILATERAL LOWER LEG CELLULITIS, GOUT FALRE, AND A PULMONARY EMBOLISM. HE HAS A PMH OF CHF, COPD, HTN, RENAL DISEASE, AND HIV. CARDIOLOGY, , SAW HIM YESTERDAY AND HAS ORDERED AN ECHO FOR TODAY. TODAY, HE IS ALERT AND ORIENTED, LYING IN BED ON MORNING ROUNDS. HE COMPLAINS OF WEAKNESS AND GENERALIZED PAIN THIS MORNING. HE DENIES CHEST PAIN OR SHORTNESS OF BREATH AT THE PRESENT TIME. ON EXAMINATION, HE CONTINUES TO BE BRADYCARDIC WITH HR IN THE 40s-50s, BUT IT DOES OCCASIONALLY INCREASE TO THE 60s. BILATERAL LUNGS ARE NOTED WITH DIMINISHED LUNG SOUNDS THROUGHOUT. ABDOMEN IS ROUND, SOFT, AND NON-TENDER WITH NORMAL BOWEL SOUNDS NOTED IN ALL QUADRANTS. BILATERAL LOWER EXTREMITIES ARE NOTED WITH ERYTHEMA, EDEMA, AND TRACE EDEMA. ERYTHEMA HAS DECREASED SINCE YESTERDAY. HIS VITALS THIS MORNING ARE: 98.4-52-19-98%-154/70. HE IS UTILIZING OXYGEN VIA NASAL CANNULA AT 2 LPM. LABS WERE OBTAINED. WBC 4.1, RBC 3.13, HGB 11.0, HCT 32.6, PLT COUNT 313, SODIUM 136, POTASSIUM 5.6, CHLORIDE 102, BUN 34, CREATININE 1.15, GLUCOSE 90, UR IC ACID 11.0, BNP 1200, ALBUMIN 2.6, GLOBULIN 5.1. BLOOD CULTURES ARE PENDING. A CHEST XRAY WAS OBTAINED THIS MORNING AND REVEALED NO SIGNIFICANT ABNORMALITY. HE IS CURRENTLY RECEIVING NORMAL SALINE AT [facility], VANCOMYCIN 1G IV Q8H, INDOCIN 50MG PO BID, DILAUDID 2MG IV Q6H PRN, ZOFRAN 4MG IV Q8H, ELIQUIS 10MG PO BID, GENTAMICIN CREAM BID, COLACE 100MG BID, MILK OF MAGNESIA 30ML PO BID. HIS HOME MEDICATIONS OF NORVASC, ECOTRIN, COLEMAN, LASIX, NEURONTIN, REGLAN, PROTONIX, PERCOCET, ALDACTONE, DESYREL, KENALOG CREAM, AND HIS ANTIVIRALS WERE RESUMED. WE WILL OBTAIN AN ECHO TODAY. OTHERWISE, WE PLAN TO FOLLOW-UP WITH AM LABS AND CONTINUE TO MONITOR. TIME SPENT ON CLINICAL ASSESSMENT, REVIWING LABS AND IMAGING, DECISION MAKING, AND DOCUMENTATION GREATER THAN 45 MINUTES. - Past Medical Family Social History Past Med/Fam/Surg Hx: No changes since H&P Allergies: Allergies No Known Drug Allergies Allergy (Verified 04/14/22 18:25) - Review of Systems ROS: No change since H&P - Vital Signs and I&O's Vital Signs: Temperature 97.7 F Pulse Rate [Apical] 47 Pulse Rate 46 Respiratory Rate 20 Blood Pressure [Left Arm] 121/61 Blood Pressure 132/65 O2 Sat by Pulse Oximetry 95 Intake and Output: Intake & Output 04/15/22 04/16/22 04/17/22 04/18/22 11:59 11:59 11:59 11:59 Intake Total 1248 / 1248 1376 / 1376 2527 / 2527 3770 / 3770 Output Total 1250 / 1250 1500 / 1500 3150 / 3150 3450 / 3450 Balance -2 / -2 -124 / -124 -623 / -623 320 / 320 - Physical Exam Oriented: Normal Eyes: Normal Ear: Normal Nose: Normal Throat: Normal Respiratory: Generalized, Diminished Cardiovascular: Bradycardia : Normal Auscultation: Bowel Sounds: Normal Palpation: Normal Tenderness: Normal Skin: Red, Tender, Hot Musculoskeletal: Right, Forearm, Wrist, Swelling, Tender Psychiatric: Normal Mood Description: Calm Affect: Normal Speech Pattern: Clear, Appropriate - Laboratory and Diagnostics Result Diagrams: 04/18/22 05:00 04/18/22 05:00 Labs: 04/14/22 15:22 Blood Blood Culture - Preliminary 04/14/22 14:48 Blood Blood Culture - Preliminary Laboratory WBC 4.0 X10^3/uL (3.6-10.0) 04/18/22 05:00 RBC 3.10 X10^6/uL (4.7-6.0) L 04/18/22 05:00 Hgb 11.0 g/dL (13.5-18.0) L 04/18/22 05:00 Hct 32.2 % (42.0-54.0) L 04/18/22 05:00 MCV 103.9 fL (80.0-100.0) H 04/18/22 05:00 MCH 35.4 pg (27.0-34.0) H 04/18/22 05:00 MCHC 34.0 g/dL (33.0-35.0) 04/18/22 05:00 RDW 14.1 % (11.6-16.5) 04/18/22 05:00 Plt Count 308 X10^3/uL (150.0-450.0) 04/18/22 05:00 MPV 6.5 fL (7.4-11.0) L 04/18/22 05:00 Neut % (Auto) 63.6 % (42.0-75.0) 04/18/22 05:00 Lymph % (Auto) 16.4 % (21.0-51.0) L 04/18/22 05:00 Starke % (Auto) 14.9 % (0.0-13.0) H 04/18/22 05:00 Eos % (Auto) 1.2 % (0.9-2.9) 04/18/22 05:00 Baso % (Auto) 3.9 % (0.2-1.0) H 04/18/22 05:00 Neut # (Auto) 2.5 x10^3/uL (2.2-4.8) 04/18/22 05:00 Lymph # (Auto) 0.7 X10^3/uL (1.3-2.9) L 04/18/22 05:00 Starke # (Auto) 0.6 x10^3/uL (0.3-0.8) 04/18/22 05:00 Eos # (Auto) 0.0 x10^3/uL (0.0-0.2) 04/18/22 05:00 Baso # (Auto) 0.2 X10^3/uL (0.0-0.1) H 04/18/22 05:00 Absolute Nucleated RBC 0.1 /100WBC 04/18/22 05:00 ESR 109 MM/HOUR (0-15) H 04/16/22 16:15 D-Dimer 2.51 ug/ml (0.0-0.57) H 04/14/22 14:48 Sodium 137 mmol/L (136-145) 04/18/22 05:00 Corrected Sodium TNP 04/18/22 05:00 Potassium 5.7 mmol/L (3.5-5.1) H 04/18/22 05:00 Chloride 102 mmol/L (98-107) 04/18/22 05:00 Carbon Dioxide 30.6 mmol/L (21-32) 04/18/22 05:00 BUN 33 mg/dL (7-18) H 04/18/22 05:00 Creatinine 1.07 mg/dL (0.70-1.30) 04/18/22 05:00 Est GFR (MDRD) Af Amer > 60 (>60) 04/18/22 05:00 Est GFR (MDRD) Non-Af > 60 (>60) 04/18/22 05:00 Glucose 95 mg/dL (65-99) 04/18/22 05:00 Lactic Acid 1.5 mmol/L (0.4-2.0) 04/14/22 14:48 Uric Acid 11.0 mg/dL (3.5-7.2) H 04/17/22 04:40 Calcium 8.7 mg/dL (8.5-10.1) 04/18/22 05:00 Corrected Calcium 9.9 mg/dL (8.5-10.1) 04/18/22 05:00 Magnesium 1.9 mg/dL (1.7-2.9) 04/16/22 04:00 Total Bilirubin 0.20 mg/dL (0.2-1.0) 04/18/22 05:00 AST 26 Units/L (15-37) 04/18/22 05:00 ALT 48 Units/L (12-78) 04/18/22 05:00 Alkaline Phosphatase 76 Units/L (46-116) 04/18/22 05:00 Creatine Kinase 76 Units/L (39-308) 04/15/22 02:16 Troponin I High Sens 17.5 ng/L (4.0-60.0) 04/15/22 02:16 C-Reactive Protein 63.90 mg/L (0-3.0) H 04/16/22 16:15 B-Natriuretic Peptide 728 pg/mL (0-79) H* 04/18/22 05:00 Total Protein 7.4 g/dL (6.4-8.2) 04/18/22 05:00 Albumin 2.5 g/dL (3.4-5.0) L 04/18/22 05:00 Globulin 4.9 g/dL (2.5-4.5) H 04/18/22 05:00 Albumin/Globulin Ratio 0.5 Ratio (1.1-2.1) L 04/18/22 05:00 Thyroxine (T4) 7.7 ug/dL (4.7-13.3) 04/16/22 16:15 TSH 3rd Generation 1.059 uIU/mL (0.358-3.74) 04/16/22 16:15 Vancomycin Trough 21.7 ug/mL (15-20) H* 04/16/22 21:13 Digoxin 0.30 ng/mL (0.9-2) L 04/17/22 04:40 SARS-CoV-2 (PCR) Negative (NEGATIVE) 04/14/22 16:47 Influenza Type A (PCR) Negative (NEGATIVE) 04/14/22 16:47 Influenza Type B (PCR) Negative (NEGATIVE) 04/14/22 16:47 RSV (PCR) Negative (NEGATIVE) 04/14/22 16:47 - Plan (1) Bilateral lower leg cellulitis Status: Acute Plan: NORMAL SALINE AT [facility], VANCOMYCIN 1G IV Q8H, TORADOL 15MG IV Q8H, DILAUDID 2MG IV Q6H PRN, ZOFRAN 4MG IV Q8H, LOVENOX 40MG SC DAILY, COLACE 100MG BID, MILK OF MAGNESIA 30ML PO BID, GENTAMICIN CREAM BID, ELIQUIS 10MG BID. MONITOR LABS (2) Pulmonary embolism Status: Acute Qualifiers: Pulmonary embolism type: unspecified Chronicity: acute Acute cor pulmonale presence: without acute cor pulmonale Qualified Code(s): I26.99 - Other pulmonary embolism without acute cor pulmonale (3) Bradycardia Status: Acute (4) Gout flare Status: Acute Qualifiers: Gout site: wrist Encounter type: initial encounter (5) Chest pain, rule out acute myocardial infarction Status: Resolved (6) CHF (congestive heart failure) Status: Chronic Qualifiers: Heart failure type: unspecified Heart failure chronicity: chronic Qualified Code(s): I50.9 - Heart failure, unspecified (7) COPD (chronic obstructive pulmonary disease) Status: Chronic Qualifiers: COPD type: unspecified COPD Qualified Code(s): J44.9 - Chronic obstructive pulmonary disease, unspecified (8) HTN (hypertension) Status: Chronic Qualifiers: Hypertension type: primary hypertension Qualified Code(s): I10 - Essential (primary) hypertension (9) Renal disease Status: Chronic (10) HIV (human immunodeficiency virus infection) Status: Chronic Qualifiers: HIV symptom status: unspecified Qualified Code(s): B20 - Human immunodeficiency virus [HIV] disease
[2022-04-18] MEDS ORDERED: PHARMACY COMMENT IV ONE (20:30)
[2022-04-18] MEDS: COLACE CAP 100 MG PO SCH (20:40)
[2022-04-18] MEDS: MILK OF MAGNESIA PO SCH (21:19)
[2022-04-18 21:37] LABS: CREATININE 1.23 mg/dL (0.70-1.30)
[2022-04-18 21:41] LABS: VANCOMYCIN,TROUGH 20.2 ug/mL (15-20)
[2022-04-18] MEDS: VANCOMYCIN IV *PREMIX 750 mg/150 ML BAG 750 MG/150 ML PIGGYBACK IV SCH (22:35)
[2022-04-19 05:00] LABS: BASOPHILS % (AUTO) 0.6 % (0.2-1.0); EOSINOPHILS % (AUTO) 0.8 % (0.9-2.9); HEMATOCRIT 31.9 % (42.0-54.0); HEMOGLOBIN 10.9 g/dL (13.5-18.0); LYMPHOCYTES # (AUTO) 0.8 X10^3/uL (1.3-2.9); LYMPHOCYTES % (AUTO) 21.5 % (21.0-51.0); MEAN CORPUSCULAR HEMOGLOBIN 35.3 pg (27.0-34.0); MEAN CORPUSCULAR VOLUME 103.9 fL (80.0-100.0); MEAN PLATELET VOLUME 6.6 fL (7.4-11.0); MONOCYTES # (AUTO) 0.5 x10^3/uL (0.3-0.8); MONOCYTES % (AUTO) 12.8 % (0.0-13.0); NEUTROPHILS # (AUTO) 2.5 x10^3/uL (2.2-4.8); NEUTROPHILS % (AUTO) 64.3 % (42.0-75.0); RED BLOOD COUNT 3.07 X10^6/uL (4.7-6.0); RED CELL DISTRIBUTION WIDTH 14.4 % (11.6-16.5); WHITE BLOOD COUNT 3.9 X10^3/uL (3.6-10.0)
[2022-04-19] MEDS: NS 1,000 ML IV 1,000 ML IV SCH ×2 (05:04→17:44)
[2022-04-19 05:13] LABS: ALANINE AMINOTRANSFERASE 48 Units/L (12-78); ALBUMIN 2.8 g/dL (3.4-5.0); ALKALINE PHOSPHATASE 79 Units/L (46-116); ASPARTATE AMINO TRANSFERASE 23 Units/L (15-37); BLOOD UREA NITROGEN 34 mg/dL (7-18); CALCIUM 8.9 mg/dL (8.5-10.1); CARBON DIOXIDE 28.3 mmol/L (21-32); CHLORIDE 101 mmol/L (98-107); COR CA(FOR HYPOALB) 9.9 mg/dL (8.5-10.1); CREATININE 1.13 mg/dL (0.70-1.30); SODIUM 136 mmol/L (136-145); TOTAL PROTEIN 7.6 g/dL (6.4-8.2); eGFR NON BLACK RACES > 60 (>60)
[2022-04-19] MEDS: PERCOCET TAB 5/325 MG PO PRN ×3 (05:30→23:50)
--- NOTE | 2022-04-19 05:48 | RAD ---
HISTORYSOB HX: CAD, CHF, HTN, AFIB, COPD SX: GBSTUDYCHEST, 1 [id number] trachea is midline. Right a central line tip in distal SVC. The cardiac silhouette is unremarkable. The lungs are clear without focal infiltrate or effusion. The bony thorax is unremarkable.IMPRESSIONNo acute cardiopulmonary findings .Electronically signed by: Raphael Rodríguez (Apr 19, 2022 05:46:51)
[2022-04-19] MEDS: PATIENT'S HOME MEDICATION PO SCH ×11 (06:17→21:22)
[2022-04-19] MEDS: DILAUDID INJ IVP PRN ×3 (08:15→19:45)
[2022-04-19] MEDS: AQUAPHOR TOP SCH ×2 (08:15→20:35)
[2022-04-19] MEDS: CHLORTHALIDONE PO SCH (08:15)
[2022-04-19] MEDS: ALDACTONE TAB 25 MG PO SCH (08:15)
[2022-04-19] MEDS: DARUNAVIR ETHANOLATE 600 MG PO SCH ×2 (08:15→20:30)
[2022-04-19] MEDS: INDOCIN CAP 25 MG PO SCH ×2 (08:16→20:36)
[2022-04-19] MEDS: ELIQUIS PO SCH ×2 (08:16→20:29)
[2022-04-19] MEDS: LASIX PO SCH ×2 (08:16→20:28)
[2022-04-19] MEDS: VANCOMYCIN IV *PREMIX 750 mg/150 ML BAG 750 MG/150 ML PIGGYBACK IV SCH ×2 (08:18→20:31)
[2022-04-19] MEDS: VALGANCICLOVIR 450 MG PO SCH (08:18)
[2022-04-19] MEDS: GENTAMICIN TOPICAL CRM TOP SCH ×2 (10:40→20:37)
[2022-04-19] MEDS: KENALOG CREAM TOP SCH (10:41)
--- NOTE | 2022-04-19 12:41 | PCM.PROG ---
Progress Note Progress Note for Day of Date of Exam: 04/19/22 Subjective Subjective: IS CURRENTLY INPATIENT STATUS FOR TREATMENT OF BILATERAL LOWER LEG CELLULITIS, GOUT FALRE, AND A PULMONARY EMBOLISM. HE HAS A PMH OF CHF, COPD, HTN, RENAL DISEASE, AND HIV. CARDIOLOGY, , SAW HIM YESTERDAY AND HAS ORDERED AN ECHO FOR TODAY. TODAY, HE IS ALERT AND ORIENTED, LYING IN BED ON MORNING ROUNDS. HE COMPLAINS OF WEAKNESS AND GENERALIZED PAIN THIS MORNING. HE DENIES CHEST PAIN OR SHORTNESS OF BREATH AT THE PRESENT TIME. ON EXAMINATION, HE CONTINUES TO BE BRADYCARDIC WITH HR IN THE 40s-50s, BUT IT DOES OCCASIONALLY INCREASE TO THE 60s. BILATERAL LUNGS ARE NOTED WITH DIMINISHED LUNG SOUNDS THROUGHOUT. ABDOMEN IS ROUND, SOFT, AND NON-TENDER WITH NORMAL BOWEL SOUNDS NOTED IN ALL QUADRANTS. BILATERAL LOWER EXTREMITIES ARE NOTED WITH ERYTHEMA, EDEMA, AND TRACE EDEMA. ERYTHEMA HAS DECREASED SINCE YESTERDAY. HIS VITALS THIS MORNING ARE: 98.4-52-19-98%-154/70. HE IS UTILIZING OXYGEN VIA NASAL CANNULA AT 2 LPM. LABS WERE OBTAINED. WBC 4.1, RBC 3.13, HGB 11.0, HCT 32.6, PLT COUNT 313, SODIUM 136, POTASSIUM 5.6, CHLORIDE 102, BUN 34, CREATININE 1.15, GLUCOSE 90, U VIN ACID 11.0, BNP 1200, ALBUMIN 2.6, GLOBULIN 5.1. BLOOD CULTURES ARE PENDING. A CHEST XRAY WAS OBTAINED THIS MORNING AND REVEALED NO SIGNIFICANT ABNORMALITY. HE IS CURRENTLY RECEIVING NORMAL SALINE AT [facility], VANCOMYCIN 1G IV Q8H, INDOCIN 50MG PO BID, DILAUDID 2MG IV Q6H PRN, ZOFRAN 4MG IV Q8H, ELIQUIS 10MG PO BID, GENTAMICIN CREAM BID, COLACE 100MG BID, MILK OF MAGNESIA 30ML PO BID. HIS HOME MEDICATIONS OF NORVASC, ECOTRIN, COLEMAN, LASIX, NEURONTIN, REGLAN, PROTONIX, PERCOCET, ALDACTONE, DESYREL, KENALOG CREAM, AND HIS ANTIVIRALS WERE RESUMED. WE WILL OBTAIN AN ECHO TODAY. OTHERWISE, WE PLAN TO FOLLOW-UP WITH AM LABS AND CONTINUE TO MONITOR. TIME SPENT ON CLINICAL ASSESSMENT, REVIWING LABS AND IMAGING, DECISION MAKING, AND DOCUMENTATION GREATER THAN 45 MINUTES. Past Medical Family Social History Past Med/Fam/Surg Hx: No changes since H&P Allergies: Allergies No Known Drug Allergies Allergy (Verified 04/14/22 18:25) Review of Systems ROS: No change since H&P Vital Signs and I&O's Vital Signs: Temperature 97.1 F Pulse Rate [Apical] 47 Pulse Rate 41 Respiratory Rate 19 Blood Pressure [Left Arm] 121/61 Blood Pressure 125/58 O2 Sat by Pulse Oximetry 97 Intake and Output: Intake & Output 04/17/22 04/18/22 04/19/22 04/20/22 11:59 11:59 11:59 11:59 Intake Total 2527 / 2527 3770 / 3770 3638 / 3638 Output Total 3150 / 3150 3450 / 3450 2800 / 2800 Balance -623 / -623 320 / 320 838 / 838 Physical Exam Oriented: Normal Eyes: Normal Ear: Normal Nose: Normal Throat: Normal Respiratory: Generalized and Diminished Cardiovascular: Bradycardia : Normal Auscultation: Bowel Sounds: Normal Tenderness: Normal Skin: Red, Tender and Hot Musculoskeletal: Right, Forearm, Wrist, Swelling and Tender Psychiatric: Normal Mood Description: Calm Affect: Normal Speech Pattern: Clear and Appropriate Laboratory and Diagnostics Result Diagrams: 04/19/22 04:05 04/19/22 04:05 Labs: 04/14/22 15:22 Blood Blood Culture - Final 04/18/22 10:15 Blood Blood Culture - Preliminary 04/14/22 14:48 Blood Blood Culture - Preliminary Laboratory WBC 3.9 X10^3/uL (3.6-10.0) 04/19/22 04:05 RBC 3.07 X10^6/uL (4.7-6.0) L 04/19/22 04:05 Hgb 10.9 g/dL (13.5-18.0) L 04/19/22 04:05 Hct 31.9 % (42.0-54.0) L 04/19/22 04:05 MCV 103.9 fL (80.0-100.0) H 04/19/22 04:05 MCH 35.3 pg (27.0-34.0) H 04/19/22 04:05 MCHC 34.0 g/dL (33.0-35.0) 04/19/22 04:05 RDW 14.4 % (11.6-16.5) 04/19/22 04:05 Plt Count 286 X10^3/uL (150.0-450.0) 04/19/22 04:05 MPV 6.6 fL (7.4-11.0) L 04/19/22 04:05 Neut % (Auto) 64.3 % (42.0-75.0) 04/19/22 04:05 Lymph % (Auto) 21.5 % (21.0-51.0) 04/19/22 04:05 Richardson % (Auto) 12.8 % (0.0-13.0) 04/19/22 04:05 Eos % (Auto) 0.8 % (0.9-2.9) L 04/19/22 04:05 Baso % (Auto) 0.6 % (0.2-1.0) 04/19/22 04:05 Neut # (Auto) 2.5 x10^3/uL (2.2-4.8) 04/19/22 04:05 Lymph # (Auto) 0.8 X10^3/uL (1.3-2.9) L 04/19/22 04:05 Richardson # (Auto) 0.5 x10^3/uL (0.3-0.8) 04/19/22 04:05 Eos # (Auto) 0.0 x10^3/uL (0.0-0.2) 04/19/22 04:05 Baso # (Auto) 0.0 X10^3/uL (0.0-0.1) 04/19/22 04:05 Absolute Nucleated RBC 0.0 /100WBC 04/19/22 04:05 ESR 109 MM/HOUR (0-15) H 04/16/22 16:15 D-Dimer 2.51 ug/ml (0.0-0.57) H 04/14/22 14:48 Sodium 136 mmol/L (136-145) 04/19/22 04:05 Corrected Sodium TNP 04/19/22 04:05 Potassium 5.9 mmol/L (3.5-5.1) H 04/19/22 04:05 Chloride 101 mmol/L (98-107) 04/19/22 04:05 Carbon Dioxide 28.3 mmol/L (21-32) 04/19/22 04:05 BUN 34 mg/dL (7-18) H 04/19/22 04:05 Creatinine 1.13 mg/dL (0.70-1.30) 04/19/22 04:05 Est GFR (MDRD) Af Amer > 60 (>60) 04/19/22 04:05 Est GFR (MDRD) Non-Af > 60 (>60) 04/19/22 04:05 Glucose 90 mg/dL (65-99) 04/19/22 04:05 Lactic Acid 1.5 mmol/L (0.4-2.0) 04/14/22 14:48 Uric Acid 10.2 mg/dL (3.5-7.2) H 04/19/22 04:05 Calcium 8.9 mg/dL (8.5-10.1) 04/19/22 04:05 Corrected Calcium 9.9 mg/dL (8.5-10.1) 04/19/22 04:05 Magnesium 1.9 mg/dL (1.7-2.9) 04/16/22 04:00 Total Bilirubin 0.20 mg/dL (0.2-1.0) 04/19/22 04:05 AST 23 Units/L (15-37) 04/19/22 04:05 ALT 48 Units/L (12-78) 04/19/22 04:05 Alkaline Phosphatase 79 Units/L (46-116) 04/19/22 04:05 Creatine Kinase 76 Units/L (39-308) 04/15/22 02:16 Troponin I High Sens 17.5 ng/L (4.0-60.0) 04/15/22 02:16 C-Reactive Protein 63.90 mg/L (0-3.0) H 04/16/22 16:15 B-Natriuretic Peptide 770 pg/mL (0-79) H* 04/19/22 04:05 Total Protein 7.6 g/dL (6.4-8.2) 04/19/22 04:05 Albumin 2.8 g/dL (3.4-5.0) L 04/19/22 04:05 Globulin 4.8 g/dL (2.5-4.5) H 04/19/22 04:05 Albumin/Globulin Ratio 0.6 Ratio (1.1-2.1) L 04/19/22 04:05 Thyroxine (T4) 7.7 ug/dL (4.7-13.3) 04/16/22 16:15 TSH 3rd Generation 1.059 uIU/mL (0.358-3.74) 04/16/22 16:15 Vancomycin Trough 20.2 ug/mL (15-20) H* 04/18/22 20:40 Digoxin 0.30 ng/mL (0.9-2) L 04/17/22 04:40 SARS-CoV-2 (PCR) Negative (NEGATIVE) 04/14/22 16:47 Influenza Type A (PCR) Negative (NEGATIVE) 04/14/22 16:47 Influenza Type B (PCR) Negative (NEGATIVE) 04/14/22 16:47 RSV (PCR) Negative (NEGATIVE) 04/14/22 16:47 Plan (1) Bilateral lower leg cellulitis: Status: Acute Narrative Support Text: Improving. Plan: NORMAL SALINE AT [facility], VANCOMYCIN 1G IV Q8H, TORADOL 15MG IV Q8H, DILAUDID 2MG IV Q6H PRN, ZOFRAN 4MG IV Q8H, LOVENOX 40MG SC DAILY, COLACE 100MG BID, MILK OF MAGNESIA 30ML PO BID, GENTAMICIN CREAM BID, ELIQUIS 10MG BID MONITOR LABS (2) Pulmonary embolism: Status: Acute Qualifiers: Pulmonary embolism type: unspecified Chronicity: acute Acute cor pulmonale presence: without acute cor pulmonale Qualified Code(s): I26.99 - Other pulmonary embolism without acute cor pulmonale Plan: OBTAIN ECHO, continue p.o. Eliquis 10 mg twice daily. (3) Bradycardia: Status: Acute (4) Gout flare: Status: Acute Qualifiers: Gout site: wrist Encounter type: initial encounter Narrative Support Text: Uric acid just above 10 today. Plan: SERIAL CARDIAC ENZYMES AND EKGS (5) Chest pain, rule out acute myocardial infarction: Status: Resolved (6) CHF (congestive heart failure): Status: Chronic Qualifiers: Heart failure type: unspecified Heart failure chronicity: chronic Qualified Code(s): I50.9 - Heart failure, unspecified (7) COPD (chronic obstructive pulmonary disease): Status: Chronic Qualifiers: COPD type: unspecified COPD Qualified Code(s): J44.9 - Chronic obstructive pulmonary disease, unspecified (8) HTN (hypertension): Status: Chronic Qualifiers: Hypertension type: primary hypertension Qualified Code(s): I10 - Essential (primary) hypertension (9) Renal disease: Status: Chronic (10) HIV (human immunodeficiency virus infection): Status: Chronic Qualifiers: HIV symptom status: unspecified Qualified Code(s): B20 - Human immunodeficiency virus [HIV] disease (11) Hyperkalemia: Status: Acute Plan: DC Aldactone today. Recheck potassium at 1500 this afternoon.
[2022-04-19] MEDS: MILK OF MAGNESIA PO SCH (20:28)
[2022-04-19] MEDS: COLACE CAP 100 MG PO SCH (20:29)
[2022-04-20] MEDS: NS 1,000 ML IV 1,000 ML IV SCH ×3 (02:58→20:12)
[2022-04-20] MEDS: DILAUDID INJ IVP PRN ×4 (03:05→17:55)
[2022-04-20 04:58] LABS: BASOPHILS # (AUTO) 0.1 X10^3/uL (0.0-0.1); BASOPHILS % (AUTO) 2.4 % (0.2-1.0); EOSINOPHILS % (AUTO) 0.9 % (0.9-2.9); HEMATOCRIT 31.2 % (42.0-54.0); HEMOGLOBIN 10.5 g/dL (13.5-18.0); LYMPHOCYTES # (AUTO) 0.8 X10^3/uL (1.3-2.9); LYMPHOCYTES % (AUTO) 19.1 % (21.0-51.0); MEAN CORPUSCULAR HEMOGLOBIN 35.1 pg (27.0-34.0); MEAN CORPUSCULAR HGB CONC 33.7 g/dL (33.0-35.0); MEAN CORPUSCULAR VOLUME 104.1 fL (80.0-100.0); MEAN PLATELET VOLUME 6.9 fL (7.4-11.0); MONOCYTES # (AUTO) 0.5 x10^3/uL (0.3-0.8); MONOCYTES % (AUTO) 12.2 % (0.0-13.0); NEUTROPHILS # (AUTO) 2.7 x10^3/uL (2.2-4.8); NEUTROPHILS % (AUTO) 65.4 % (42.0-75.0); WHITE BLOOD COUNT 4.1 X10^3/uL (3.6-10.0)
[2022-04-20 05:11] LABS: ALANINE AMINOTRANSFERASE 38 Units/L (12-78); ALBUMIN 2.7 g/dL (3.4-5.0); ALKALINE PHOSPHATASE 79 Units/L (46-116); ASPARTATE AMINO TRANSFERASE 18 Units/L (15-37); BLOOD UREA NITROGEN 37 mg/dL (7-18); CALCIUM 8.7 mg/dL (8.5-10.1); CARBON DIOXIDE 29.4 mmol/L (21-32); CHLORIDE 104 mmol/L (98-107); COR CA(FOR HYPOALB) 9.7 mg/dL (8.5-10.1); CREATININE 1.22 mg/dL (0.70-1.30); SODIUM 138 mmol/L (136-145); TOTAL PROTEIN 7.1 g/dL (6.4-8.2); eGFR NON BLACK RACES > 60 (>60)
[2022-04-20] MEDS: PATIENT'S HOME MEDICATION PO SCH ×11 (05:16→21:12)
--- NOTE | 2022-04-20 06:54 | RAD ---
HISTORYSOBSTUDYCHEST, 1 [id number]/2022FINDINGSLINES AND TUBES: Right central line is stable.HEART/ PULMONARY VASCULATURE: UnchangedLUNGS/ PLEURA: No significant change. No new or increasing airspace consolidation. No sizable pleural effusion. No pneumothoraxIMPRESSIONNo significant change. No acute cardiopulmonary disease.Electronically signed by: Dion Stanley (Apr 20, 2022 06:53:37)
[2022-04-20] MEDS: AQUAPHOR TOP SCH ×2 (08:02→21:10)
[2022-04-20] MEDS: PERCOCET TAB 5/325 MG PO PRN ×3 (08:02→21:00)
[2022-04-20] MEDS: CHLORTHALIDONE PO SCH (08:03)
[2022-04-20] MEDS: DARUNAVIR ETHANOLATE 600 MG PO SCH ×2 (08:03→21:11)
[2022-04-20] MEDS: ELIQUIS PO SCH ×2 (08:03→21:09)
[2022-04-20] MEDS: GENTAMICIN TOPICAL CRM TOP SCH ×2 (08:03→21:11)
[2022-04-20] MEDS: INDOCIN CAP 25 MG PO SCH ×2 (08:03→21:12)
[2022-04-20] MEDS: LASIX PO SCH ×2 (08:04→21:09)
[2022-04-20] MEDS: KENALOG CREAM TOP SCH (08:04)
[2022-04-20] MEDS: VALGANCICLOVIR 450 MG PO SCH (08:05)
[2022-04-20] MEDS ORDERED: PHARMACY COMMENT IV ONE (08:30)
[2022-04-20 09:03] LABS: CREATININE 1.25 mg/dL (0.70-1.30); VANCOMYCIN,TROUGH 17.4 ug/mL (15-20)
[2022-04-20] MEDS: VANCOMYCIN IV *PREMIX 750 mg/150 ML BAG 750 MG/150 ML PIGGYBACK IV SCH ×2 (09:41→21:10)
--- NOTE | 2022-04-20 15:51 | PCM.PROG ---
Progress Note Progress Note for Day of Date of Exam: 04/20/22 Subjective Subjective: IS CURRENTLY INPATIENT STATUS FOR TREATMENT OF BILATERAL LOWER LEG CELLULITIS, GOUT FALRE, AND A PULMONARY EMBOLISM. HE HAS A PMH OF CHF, COPD, HTN, RENAL DISEASE, AND HIV. CARDIOLOGY, , SAW HIM YESTERDAY AND HAS ORDERED AN ECHO FOR TODAY. TODAY, HE IS ALERT AND ORIENTED, LYING IN BED ON MORNING ROUNDS. HE COMPLAINS OF WEAKNESS AND GENERALIZED PAIN THIS MORNING. HE DENIES CHEST PAIN OR SHORTNESS OF BREATH AT THE PRESENT TIME. ON EXAMINATION, HE CONTINUES TO BE BRADYCARDIC WITH HR IN THE 40s-50s, BUT IT DOES OCCASIONALLY INCREASE TO THE 60s. BILATERAL LUNGS ARE NOTED WITH DIMINISHED LUNG SOUNDS THROUGHOUT. ABDOMEN IS ROUND, SOFT, AND NON-TENDER WITH NORMAL BOWEL SOUNDS NOTED IN ALL QUADRANTS. BILATERAL LOWER EXTREMITIES ARE NOTED WITH ERYTHEMA, EDEMA, AND TRACE EDEMA. ERYTHEMA HAS DECREASED SINCE YESTERDAY. HIS VITALS THIS MORNING ARE: 98.4-52-19-98%-154/70. HE IS UTILIZING OXYGEN VIA NASAL CANNULA AT 2 LPM. LABS WERE OBTAINED. WBC 4.1, RBC 3.13, HGB 11.0, HCT 32.6, PLT COUNT 313, SODIUM 136, POTASSIUM 5.6, CHLORIDE 102, BUN 34, CREATININE 1.15, GLUCOSE 90, U VIN ACID 11.0, BNP 1200, ALBUMIN 2.6, GLOBULIN 5.1. BLOOD CULTURES ARE PENDING. A CHEST XRAY WAS OBTAINED THIS MORNING AND REVEALED NO SIGNIFICANT ABNORMALITY. HE IS CURRENTLY RECEIVING NORMAL SALINE AT [facility], VANCOMYCIN 1G IV Q8H, INDOCIN 50MG PO BID, DILAUDID 2MG IV Q6H PRN, ZOFRAN 4MG IV Q8H, ELIQUIS 10MG PO BID, GENTAMICIN CREAM BID, COLACE 100MG BID, MILK OF MAGNESIA 30ML PO BID. HIS HOME MEDICATIONS OF NORVASC, ECOTRIN, COLEMAN, LASIX, NEURONTIN, REGLAN, PROTONIX, PERCOCET, ALDACTONE, DESYREL, KENALOG CREAM, AND HIS ANTIVIRALS WERE RESUMED. WE WILL OBTAIN AN ECHO TODAY. OTHERWISE, WE PLAN TO FOLLOW-UP WITH AM LABS AND CONTINUE TO MONITOR. TIME SPENT ON CLINICAL ASSESSMENT, REVIWING LABS AND IMAGING, DECISION MAKING, AND DOCUMENTATION GREATER THAN 45 MINUTES. 20 April 2022 The patient is doing better today. His potassium is trending down. And Aldactone yesterday. His potassium this morning 5.6. He reports his legs are doing better although they are still hurting him some but not like before. Does report his pain is not controlled and asked if I can go up on his pain medicine. Said he was getting Dilaudid every 6 hours I will change it every 4 hours. He has no other complaints this morning. Past Medical Family Social History Past Med/Fam/Surg Hx: No changes since H&P Allergies: Allergies No Known Drug Allergies Allergy (Verified 04/14/22 18:25) Review of Systems ROS: No change since H&P Vital Signs and I&O's Vital Signs: Temperature 98.1 F Pulse Rate [Apical] 47 Pulse Rate 58 Respiratory Rate 24 Blood Pressure [Left Arm] 121/61 Blood Pressure 126/64 O2 Sat by Pulse Oximetry 96 Intake and Output: Intake & Output 04/18/22 04/19/22 04/20/22 04/21/22 11:59 11:59 11:59 11:59 Intake Total 3770 / 3770 3638 / 3638 2948 / 2948 1114 / 1114 Output Total 3450 / 3450 2800 / 2800 3100 / 3100 2600 / 2600 Balance 320 / 320 838 / 838 -152 / -152 -1486 / -1486 Physical Exam Oriented: Normal Eyes: Normal Ear: Normal Nose: Normal Throat: Normal Respiratory: Generalized and Diminished Cardiovascular: Bradycardia : Normal Auscultation: Bowel Sounds: Normal Tenderness: Normal Skin: Red, Tender and Hot Musculoskeletal: Right, Forearm, Wrist, Swelling and Tender Psychiatric: Normal Mood Description: Calm Affect: Normal Speech Pattern: Clear and Appropriate Laboratory and Diagnostics Result Diagrams: 04/20/22 04:12 04/20/22 08:33 Labs: 04/14/22 14:48 Blood Blood Culture - Final 04/18/22 10:15 Blood Blood Culture - Preliminary 04/18/22 10:24 Blood Blood Culture - Preliminary 04/14/22 15:22 Blood Blood Culture - Final Laboratory WBC 4.1 X10^3/uL (3.6-10.0) 04/20/22 04:12 RBC 3.00 X10^6/uL (4.7-6.0) L 04/20/22 04:12 Hgb 10.5 g/dL (13.5-18.0) L 04/20/22 04:12 Hct 31.2 % (42.0-54.0) L 04/20/22 04:12 MCV 104.1 fL (80.0-100.0) H 04/20/22 04:12 MCH 35.1 pg (27.0-34.0) H 04/20/22 04:12 MCHC 33.7 g/dL (33.0-35.0) 04/20/22 04:12 RDW 14.0 % (11.6-16.5) 04/20/22 04:12 Plt Count 284 X10^3/uL (150.0-450.0) 04/20/22 04:12 MPV 6.9 fL (7.4-11.0) L 04/20/22 04:12 Neut % (Auto) 65.4 % (42.0-75.0) 04/20/22 04:12 Lymph % (Auto) 19.1 % (21.0-51.0) L 04/20/22 04:12 [place] % (Auto) 12.2 % (0.0-13.0) 04/20/22 04:12 Eos % (Auto) 0.9 % (0.9-2.9) 04/20/22 04:12 Baso % (Auto) 2.4 % (0.2-1.0) H 04/20/22 04:12 Neut # (Auto) 2.7 x10^3/uL (2.2-4.8) 04/20/22 04:12 Lymph # (Auto) 0.8 X10^3/uL (1.3-2.9) L 04/20/22 04:12 [place] # (Auto) 0.5 x10^3/uL (0.3-0.8) 04/20/22 04:12 Eos # (Auto) 0.0 x10^3/uL (0.0-0.2) 04/20/22 04:12 Baso # (Auto) 0.1 X10^3/uL (0.0-0.1) 04/20/22 04:12 Absolute Nucleated RBC 0.0 /100WBC 04/20/22 04:12 ESR 109 MM/HOUR (0-15) H 04/16/22 16:15 D-Dimer 2.51 ug/ml (0.0-0.57) H 04/14/22 14:48 Sodium 138 mmol/L (136-145) 04/20/22 04:12 Corrected Sodium TNP 04/20/22 04:12 Potassium 5.6 mmol/L (3.5-5.1) H 04/20/22 04:12 Chloride 104 mmol/L (98-107) 04/20/22 04:12 Carbon Dioxide 29.4 mmol/L (21-32) 04/20/22 04:12 BUN 37 mg/dL (7-18) H 04/20/22 04:12 Creatinine 1.25 mg/dL (0.70-1.30) 04/20/22 08:33 Est GFR (MDRD) Af Amer > 60 (>60) 04/20/22 04:12 Est GFR (MDRD) Non-Af > 60 (>60) 04/20/22 04:12 Glucose 109 mg/dL (65-99) H 04/20/22 04:12 Lactic Acid 1.5 mmol/L (0.4-2.0) 04/14/22 14:48 Uric Acid 10.0 mg/dL (3.5-7.2) H 04/20/22 04:12 Calcium 8.7 mg/dL (8.5-10.1) 04/20/22 04:12 Corrected Calcium 9.7 mg/dL (8.5-10.1) 04/20/22 04:12 Magnesium 2.0 mg/dL (1.7-2.9) 04/20/22 04:12 Total Bilirubin 0.20 mg/dL (0.2-1.0) 04/20/22 04:12 AST 18 Units/L (15-37) 04/20/22 04:12 ALT 38 Units/L (12-78) 04/20/22 04:12 Alkaline Phosphatase 79 Units/L (46-116) 04/20/22 04:12 Creatine Kinase 76 Units/L (39-308) 04/15/22 02:16 Troponin I High Sens 17.5 ng/L (4.0-60.0) 04/15/22 02:16 C-Reactive Protein 63.90 mg/L (0-3.0) H 04/16/22 16:15 B-Natriuretic Peptide 763 pg/mL (0-79) H* 04/20/22 04:12 Total Protein 7.1 g/dL (6.4-8.2) 04/20/22 04:12 Albumin 2.7 g/dL (3.4-5.0) L 04/20/22 04:12 Globulin 4.4 g/dL (2.5-4.5) 04/20/22 04:12 Albumin/Globulin Ratio 0.6 Ratio (1.1-2.1) L 04/20/22 04:12 Thyroxine (T4) 7.7 ug/dL (4.7-13.3) 04/16/22 16:15 TSH 3rd Generation 1.059 uIU/mL (0.358-3.74) 04/16/22 16:15 Vancomycin Trough 17.4 ug/mL (15-20) 04/20/22 08:33 Digoxin 0.30 ng/mL (0.9-2) L 04/17/22 04:40 SARS-CoV-2 (PCR) Negative (NEGATIVE) 04/14/22 16:47 Influenza Type A (PCR) Negative (NEGATIVE) 04/14/22 16:47 Influenza Type B (PCR) Negative (NEGATIVE) 04/14/22 16:47 RSV (PCR) Negative (NEGATIVE) 04/14/22 16:47 Plan (1) Bilateral lower leg cellulitis: Status: Acute Narrative Support Text: Improving Plan: NORMAL SALINE AT [facility], VANCOMYCIN 1G IV Q8H, TORADOL 15MG IV Q8H, DILAUDID 2MG IV Q6H PRN, ZOFRAN 4MG IV Q8H, LOVENOX 40MG SC DAILY, COLACE 100MG BID, MILK OF MAGNESIA 30ML PO BID, GENTAMICIN CREAM BID, ELIQUIS 10MG BID MONITOR LABS (2) Pulmonary embolism: Status: Acute Qualifiers: Acute cor pulmonale presence: without acute cor pulmonale Chronicity: acute Pulmonary embolism type: unspecified Qualified Code(s): I26.99 - Other pulmonary embolism without acute cor pulmonale Plan: OBTAIN ECHO, continue p.o. Eliquis 10 mg twice daily. (3) Bradycardia: Status: Acute (4) Gout flare: Status: Acute Qualifiers: Encounter type: initial encounter Gout site: wrist Plan: SERIAL CARDIAC ENZYMES AND EKGS (5) Chest pain, rule out acute myocardial infarction: Status: Resolved (6) CHF (congestive heart failure): Status: Chronic Qualifiers: Heart failure chronicity: chronic Heart failure type: unspecified Qualified Code(s): I50.9 - Heart failure, unspecified (7) COPD (chronic obstructive pulmonary disease): Status: Chronic Qualifiers: COPD type: unspecified COPD Qualified Code(s): J44.9 - Chronic obstructive pulmonary disease, unspecified (8) HTN (hypertension): Status: Chronic Qualifiers: Hypertension type: primary hypertension Qualified Code(s): I10 - Essential (primary) hypertension (9) Renal disease: Status: Chronic (10) HIV (human immunodeficiency virus infection): Status: Chronic Qualifiers: HIV symptom status: unspecified Qualified Code(s): B20 - Human immunodeficiency virus [HIV] disease (11) Hyperkalemia: Status: Acute Narrative Support Text: Potassium is still trending down. Potassium today is 5.6. Plan: DC Aldactone today. Recheck potassium at 1500 this afternoon.
[2022-04-20] MEDS: COLACE CAP 100 MG PO SCH (21:11)
[2022-04-20] MEDS: MILK OF MAGNESIA PO SCH (21:11)
[2022-04-21] MEDS: DILAUDID INJ IVP PRN ×4 (01:00→19:45)
[2022-04-21] MEDS: PERCOCET TAB 5/325 MG PO PRN ×4 (04:20→23:07)
[2022-04-21] MEDS: PATIENT'S HOME MEDICATION PO SCH ×11 (05:19→21:01)
[2022-04-21 05:20] LABS: BASOPHILS # (AUTO) 0.2 X10^3/uL (0.0-0.1); BASOPHILS % (AUTO) 3.9 % (0.2-1.0); EOSINOPHILS % (AUTO) 1.1 % (0.9-2.9); HEMATOCRIT 31.4 % (42.0-54.0); HEMOGLOBIN 10.6 g/dL (13.5-18.0); LYMPHOCYTES # (AUTO) 0.5 X10^3/uL (1.3-2.9); LYMPHOCYTES % (AUTO) 11.9 % (21.0-51.0); MEAN CORPUSCULAR HEMOGLOBIN 35.4 pg (27.0-34.0); MEAN CORPUSCULAR HGB CONC 33.8 g/dL (33.0-35.0); MEAN CORPUSCULAR VOLUME 104.9 fL (80.0-100.0); MEAN PLATELET VOLUME 7.1 fL (7.4-11.0); MONOCYTES # (AUTO) 0.5 x10^3/uL (0.3-0.8); MONOCYTES % (AUTO) 11.4 % (0.0-13.0); NEUTROPHILS # (AUTO) 3.1 x10^3/uL (2.2-4.8); NEUTROPHILS % (AUTO) 71.7 % (42.0-75.0); RED BLOOD COUNT 2.99 X10^6/uL (4.7-6.0); RED CELL DISTRIBUTION WIDTH 14.6 % (11.6-16.5); WHITE BLOOD COUNT 4.3 X10^3/uL (3.6-10.0)
[2022-04-21 05:42] LABS: ALANINE AMINOTRANSFERASE 33 Units/L (12-78); ALBUMIN 2.8 g/dL (3.4-5.0); ALKALINE PHOSPHATASE 80 Units/L (46-116); ASPARTATE AMINO TRANSFERASE 16 Units/L (15-37); BLOOD UREA NITROGEN 37 mg/dL (7-18); CALCIUM 8.6 mg/dL (8.5-10.1); CARBON DIOXIDE 28.7 mmol/L (21-32); CHLORIDE 106 mmol/L (98-107); COR CA(FOR HYPOALB) 9.6 mg/dL (8.5-10.1); COR NA(FOR HYPERGLY) 140 mmol/L (136-145); CREATININE 1.21 mg/dL (0.70-1.30); SODIUM 139 mmol/L (136-145); TOTAL PROTEIN 7.3 g/dL (6.4-8.2); eGFR NON BLACK RACES > 60 (>60)
--- NOTE | 2022-04-21 06:06 | RAD ---
HISTORYShortness of breathSTUDYChest AP [id number]/28/2022FINDINGSTher e is a right-sided central line with its tip in the expected position of the superior vena cava. The heart is upper limits normal in size. No congestive heart failure is noted. No acute alveolar infiltrates or pleural effusions are identified. Bony thorax is unremarkable.IMPRESSIONNo definite abnormality identifiedElectronically signed by: MANE TOURE (Apr 21, 2022 06:05:31)
[2022-04-21 06:10] LABS: ANTI-NUCLEAR ANTIBODY TEST None Detected (None Detected); PROTEIN C ACTIVITY 117 % (83-168)
[2022-04-21] MEDS: AQUAPHOR TOP SCH ×2 (08:36→20:42)
[2022-04-21] MEDS: CHLORTHALIDONE PO SCH (08:37)
[2022-04-21] MEDS: DARUNAVIR ETHANOLATE 600 MG PO SCH ×2 (08:37→20:53)
[2022-04-21] MEDS: ELIQUIS PO SCH ×2 (08:37→20:45)
[2022-04-21] MEDS: GENTAMICIN TOPICAL CRM TOP SCH ×2 (08:37→20:44)
[2022-04-21] MEDS: KENALOG CREAM TOP SCH (08:38)
[2022-04-21] MEDS: LASIX PO SCH ×2 (08:38→20:45)
[2022-04-21] MEDS: INDOCIN CAP 25 MG PO SCH ×2 (08:38→21:25)
[2022-04-21] MEDS: VANCOMYCIN IV *PREMIX 750 mg/150 ML BAG 750 MG/150 ML PIGGYBACK IV SCH ×2 (08:40→20:43)
[2022-04-21] MEDS: VALGANCICLOVIR 450 MG PO SCH (08:40)
[2022-04-21] MEDS: NS 1,000 ML IV 1,000 ML IV SCH ×2 (08:45→15:13)
--- NOTE | 2022-04-21 11:43 | PCM.PROG ---
Progress Note - Progress Note for Day of Date of Exam: 04/18/22 - Subjective Subjective: IS CURRENTLY INPATIENT STATUS FOR TREATMENT OF BILATERAL LOWER LEG CELLULITIS, GOUT FALRE, AND A PULMONARY EMBOLISM. HE HAS A PMH OF CHF, COPD, HTN, RENAL DISEASE, AND HIV. CARDIOLOGY, , SAW HIM ON THE AND RECOMMENDS A [facility] CARDIAC WORK-UP AN OUTPATIENT, WHEN DISCHARGED FROM THE HOSPITAL. TODAY, HE IS ALERT AND ORIENTED, LYING IN BED ON MORNING ROUNDS. HE CONTINUES WITH COMPLAINTS OF WEAKNESS AND GENERALIZED PAIN THIS MORNING. HE DENIES CHEST PAIN OR SHORTNESS OF BREATH AT THE PRESENT TIME. ON EXAMINATION, HE CONTINUES TO BE BRADYCARDIC WITH HR IN THE 40s-50s, BUT IT DOES OCCASIONALLY INCREASE TO THE 60s. BILATERAL LUNGS ARE NOTED WITH DIMINISHED LUNG SOUNDS THROUGHOUT. ABDOMEN IS ROUND, SOFT, AND NON-TENDER WITH NORMAL BOWEL SOUNDS NOTED IN ALL QUADRANTS. BILATERAL LOWER EXTREMITIES ARE NOTED WITH ERYTHEMA, EDEMA, AND TRACE EDEMA. ERYTHEMA HAS DECREASED SINCE YESTERDAY. HIS VITALS THIS MORNING ARE: 98.2-45-17-95%-126/62. HE IS UTILIZING OXYGEN VIA NASAL CANNULA AT 2 LPM. LABS WERE OBTAINED. WBC 4.0, RBC 3.10, HGB 11.0, HCT 32.2, PLT COUNT 6.5, SODIUM 137, POTASSIUM 5.7, BUN 33, CREATININE 1.07, GLUCOSE 95, CALCIUM 8.7, BNP 728, TOTAL PROTEIN 7.4, ALBUMIN 2.5, GLOBULIN 4.9. BLOOD CULTURES ARE PENDING. PRELIMINARY CULTURE REPORTS GROWTH OF GRAM POSITIVE RODS. A CHEST XRAY WAS OBTAINED THIS MORNING AND REVEALED NO SIGNIFICANT ABNORMALITY WAS IDENTIFIED. HE IS CURRENTLY RECEIVING NORMAL SALINE AT [facility], VANCOMYCIN 1G IV Q8H, INDOCIN 50MG PO BID, DILAUDID 2MG IV Q6H PRN, ZOFRAN 4MG IV Q8H, ELIQUIS 10MG PO BID, GENTAMICIN CREAM BID, COLACE 100MG BID, MILK OF MAGNESIA 30ML PO BID. HIS HOME MEDICATIONS OF NORVASC, ECOTRIN, COLEMAN, LASIX, NEURONTIN, REGLAN, PROTONIX, PERCOCET, ALDACTONE, DESYREL, KENALOG CREAM, AND HIS ANTIVIRALS WERE RESUMED. WE WILL OBTAIN AN ECHO TODAY. WE WILL REPEAT HIS BLOOD CULTURES. OTHERWISE, WE PLAN TO FOLLOW-UP WITH AM LABS AND CONTINUE TO MONITOR. TIME SPENT ON CLINICAL ASSESSMENT, REVIWING LABS AND IMAGING, DECISION MAKING, AND DOCUMENTATION GREATER THAN 45 MINUTES. - Past Medical Family Social History Past Med/Fam/Surg Hx: No changes since H&P Allergies: Allergies No Known Drug Allergies Allergy (Verified 04/14/22 18:25) - Review of Systems ROS: No change since H&P - Vital Signs and I&O's Vital Signs: Temperature 98.4 F Pulse Rate [Apical] 47 Pulse Rate 43 Respiratory Rate 24 Blood Pressure [Left Arm] 121/61 Blood Pressure 128/62 O2 Sat by Pulse Oximetry 98 Intake and Output: Intake & Output 04/18/22 04/19/22 04/20/22 04/21/22 11:59 11:59 11:59 11:59 Intake Total 3770 / 3770 3638 / 3638 2948 / 2948 2994 / 2994 Output Total 3450 / 3450 2800 / 2800 3100 / 3100 4750 / 4750 Balance 320 / 320 838 / 838 -152 / -152 -1756 / -1756 - Physical Exam Oriented: Normal Eyes: Normal Ear: Normal Nose: Normal Throat: Normal Respiratory: Generalized, Diminished Cardiovascular: Bradycardia : Normal Auscultation: Bowel Sounds: Normal Palpation: Normal Tenderness: Normal Skin: Red, Tender, Hot Musculoskeletal: Right, Forearm, Wrist, Swelling, Tender Psychiatric: Normal Mood Description: Calm Affect: Normal Speech Pattern: Clear, Appropriate - Laboratory and Diagnostics Result Diagrams: 04/21/22 04:10 04/21/22 04:10 Labs: 04/18/22 10:24 Blood Blood Culture - Final Staphylococcus Haemolyticus 04/18/22 10:15 Blood Blood Culture - Preliminary 04/14/22 14:48 Blood Blood Culture - Final 04/14/22 15:22 Blood Blood Culture - Final Laboratory WBC 4.3 X10^3/uL (3.6-10.0) 04/21/22 04:10 RBC 2.99 X10^6/uL (4.7-6.0) L 04/21/22 04:10 Hgb 10.6 g/dL (13.5-18.0) L 04/21/22 04:10 Hct 31.4 % (42.0-54.0) L 04/21/22 04:10 MCV 104.9 fL (80.0-100.0) H 04/21/22 04:10 MCH 35.4 pg (27.0-34.0) H 04/21/22 04:10 MCHC 33.8 g/dL (33.0-35.0) 04/21/22 04:10 RDW 14.6 % (11.6-16.5) 04/21/22 04:10 Plt Count 260 X10^3/uL (150.0-450.0) 04/21/22 04:10 MPV 7.1 fL (7.4-11.0) L 04/21/22 04:10 Neut % (Auto) 71.7 % (42.0-75.0) 04/21/22 04:10 Lymph % (Auto) 11.9 % (21.0-51.0) L 04/21/22 04:10 [place] % (Auto) 11.4 % (0.0-13.0) 04/21/22 04:10 Eos % (Auto) 1.1 % (0.9-2.9) 04/21/22 04:10 Baso % (Auto) 3.9 % (0.2-1.0) H 04/21/22 04:10 Neut # (Auto) 3.1 x10^3/uL (2.2-4.8) 04/21/22 04:10 Lymph # (Auto) 0.5 X10^3/uL (1.3-2.9) L 04/21/22 04:10 [place] # (Auto) 0.5 x10^3/uL (0.3-0.8) 04/21/22 04:10 Eos # (Auto) 0.0 x10^3/uL (0.0-0.2) 04/21/22 04:10 Baso # (Auto) 0.2 X10^3/uL (0.0-0.1) H 04/21/22 04:10 Absolute Nucleated RBC 0.1 /100WBC 04/21/22 04:10 ESR 109 MM/HOUR (0-15) H 04/16/22 16:15 D-Dimer 2.51 ug/ml (0.0-0.57) H 04/14/22 14:48 Prot C Funct Activity 117 % (83-168) 04/16/22 16:15 APC Resistance Ratio 1.44 (>=2.00) L 04/16/22 16:15 Protein S Activity 108 % (66-143) 04/16/22 16:15 Antithrombin III Activ 102 % (76-128) 04/16/22 16:15 Sodium 139 mmol/L (136-145) 04/21/22 04:10 Corrected Sodium 140 mmol/L (136-145) 04/21/22 04:10 Potassium 5.8 mmol/L (3.5-5.1) H 04/21/22 04:10 Chloride 106 mmol/L (98-107) 04/21/22 04:10 Carbon Dioxide 28.7 mmol/L (21-32) 04/21/22 04:10 BUN 37 mg/dL (7-18) H 04/21/22 04:10 Creatinine 1.21 mg/dL (0.70-1.30) 04/21/22 04:10 Est GFR (MDRD) Af Amer > 60 (>60) 04/21/22 04:10 Est GFR (MDRD) Non-Af > 60 (>60) 04/21/22 04:10 Glucose 141 mg/dL (65-99) H 04/21/22 04:10 Lactic Acid 1.5 mmol/L (0.4-2.0) 04/14/22 14:48 Uric Acid 10.0 mg/dL (3.5-7.2) H 04/20/22 04:12 Calcium 8.6 mg/dL (8.5-10.1) 04/21/22 04:10 Corrected Calcium 9.6 mg/dL (8.5-10.1) 04/21/22 04:10 Magnesium 2.0 mg/dL (1.7-2.9) 04/20/22 04:12 Total Bilirubin 0.20 mg/dL (0.2-1.0) 04/21/22 04:10 AST 16 Units/L (15-37) 04/21/22 04:10 ALT 33 Units/L (12-78) 04/21/22 04:10 Alkaline Phosphatase 80 Units/L (46-116) 04/21/22 04:10 Creatine Kinase 76 Units/L (39-308) 04/15/22 02:16 Troponin I High Sens 17.5 ng/L (4.0-60.0) 04/15/22 02:16 C-Reactive Protein 63.90 mg/L (0-3.0) H 04/16/22 16:15 B-Natriuretic Peptide 672 pg/mL (0-79) H* 04/21/22 04:10 Total Protein 7.3 g/dL (6.4-8.2) 04/21/22 04:10 Albumin 2.8 g/dL (3.4-5.0) L 04/21/22 04:10 Globulin 4.5 g/dL (2.5-4.5) 04/21/22 04:10 Albumin/Globulin Ratio 0.6 Ratio (1.1-2.1) L 04/21/22 04:10 Homocysteine 21 umol/L (0-15) H 04/16/22 16:15 Thyroxine (T4) 7.7 ug/dL (4.7-13.3) 04/16/22 16:15 TSH 3rd Generation 1.059 uIU/mL (0.358-3.74) 04/16/22 16:15 Vancomycin Trough 17.4 ug/mL (15-20) 04/20/22 08:33 Digoxin 0.30 ng/mL (0.9-2) L 04/17/22 04:40 FREDO Screen None detected (None Detected) 04/16/22 16:15 FREDO Titer TNP 04/16/22 16:15 FREDO Pattern TNP 04/16/22 16:15 SARS-CoV-2 (PCR) Negative (NEGATIVE) 04/14/22 16:47 Influenza Type A (PCR) Negative (NEGATIVE) 04/14/22 16:47 Influenza Type B (PCR) Negative (NEGATIVE) 04/14/22 16:47 RSV (PCR) Negative (NEGATIVE) 04/14/22 16:47 - Plan (1) Bilateral lower leg cellulitis Status: Acute Plan: NORMAL SALINE AT KVO, VANCOMYCIN 1G IV Q8H, TORADOL 15MG IV Q8H, DILAUDID 2MG IV Q6H PRN, ZOFRAN 4MG IV Q8H, LOVENOX 40MG SC DAILY, COLACE 100MG BID, MILK OF MAGNESIA 30ML PO BID, GENTAMICIN CREAM BID, ELIQUIS 10MG BID. MONITOR LABS (2) Pulmonary embolism Status: Acute Qualifiers: Pulmonary embolism type: unspecified Chronicity: acute Acute cor pulmonale presence: without acute cor pulmonale Qualified Code(s): I26.99 - Other pulmonary embolism without acute cor pulmonale Plan: OBTAIN ECHO, continue p.o. Eliquis 10 mg twice daily. (3) Bradycardia Status: Acute (4) Gout flare Status: Acute Qualifiers: Gout site: wrist Encounter type: initial encounter Plan: SERIAL CARDIAC ENZYMES AND EKGS (5) Chest pain, rule out acute myocardial infarction Status: Resolved (6) CHF (congestive heart failure) Status: Chronic Qualifiers: Heart failure type: unspecified Heart failure chronicity: chronic Qualified Code(s): I50.9 - Heart failure, unspecified (7) COPD (chronic obstructive pulmonary disease) Status: Chronic Qualifiers: COPD type: unspecified COPD Qualified Code(s): J44.9 - Chronic obstructive pulmonary disease, unspecified (8) HTN (hypertension) Status: Chronic Qualifiers: Hypertension type: primary hypertension Qualified Code(s): I10 - Essential (primary) hypertension (9) Renal disease Status: Chronic (10) HIV (human immunodeficiency virus infection) Status: Chronic Qualifiers: HIV symptom status: unspecified Qualified Code(s): B20 - Human immunodeficiency virus [HIV] disease
[2022-04-21] MEDS: NYSTATIN POWDER TOP SCH ×2 (11:44→20:43)
[2022-04-21] MEDS ORDERED: COLCRYS TAB 0.6 MG PO ONE (11:44)
--- NOTE | 2022-04-21 12:35 | PCM.PROG ---
Progress Note - Progress Note for Day of Date of Exam: 04/21/22 - Subjective Subjective: IS CURRENTLY INPATIENT STATUS FOR TREATMENT OF BILATERAL LOWER LEG CELLULITIS, GOUT FALRE, AND A PULMONARY EMBOLISM. HE HAS A PMH OF CHF, COPD, HTN, RENAL DISEASE, AND HIV. CARDIOLOGY, , SAW HIM ON THE AND RECOMMENDS A [facility] CARDIAC WORK-UP AN OUTPATIENT, WHEN DISCHARGED FROM THE HOSPITAL. TODAY, HE IS ALERT AND ORIENTED, LYING IN BED ON MORNING ROUNDS. HE CONTINUES WITH COMPLAINTS OF WEAKNESS AND GENERALIZED PAIN THIS MORNING. HE ALSO REPORTS REDNESS AND IRRITATION TO THE RIGHT AXILLA. HE DENIES CHEST PAIN OR SHORTNESS OF BREATH AT THE PRESENT TIME. ON EXAMINATION, HE CONTINUES TO BE BRADYCARDIC WITH HR IN THE 40s-50s, BUT IT DOES OCCASIONALLY INCREASE TO THE 60s. BILATERAL LUNGS ARE NOTED WITH DIMINISHED LUNG SOUNDS THROUGHOUT. ABDOMEN IS ROUND, SOFT, AND NON-TENDER WITH NORMAL BOWEL SOUNDS NOTED IN ALL QUADRANTS. BILATERAL LOWER EXTREMITIES ARE NOTED WITH ERYTHEMA, EDEMA, AND TRACE EDEMA. ERYTHEMA HAS DECREASED SINCE WE LAST SAW HIM AND OVERALL LOOKS BETTER. HIS VITALS THIS MORNING ARE: 98.7-53-19-16%-152/69. HE IS UTILIZING OXYGEN VIA NASAL CANNULA AT 2 LPM. LABS WERE OBTAINED. WBC 4.3, RBC 2.99, HGB 10.6, HCT 31.4, SODIUM 139, POTASSIUM 5.8, BUN 37, CREATININE 1.21, GLUCOSE 141, CALCIUM 8.6, AST 16, ALT 33, ALK PHOS 80, BNP 672, TOTAL PROTEIN 7.3, ALBUMIN 2.8. BLOOD CULTURES REVEAL GROWTH OF STAPHY LOCOCCUS HAEMOLYTICUS. A CHEST XRAY WAS OBTAINED THIS MORNING AND REVEALED NO DEFINITE ABNORMALITY WAS IDENTIFIED. HE IS CURRENTLY RECEIVING NORMAL SALINE AT [facility], VANCOMYCIN 1G IV Q8H, INDOCIN 50MG PO BID, DILAUDID 2MG IV Q4H PRN, ZOFRAN 4MG IV Q8H, ELIQUIS 10MG PO BID, GENTAMICIN CREAM BID, COLACE 100MG BID, MILK OF MAGNESIA 30ML PO BID. HIS HOME MEDICATIONS OF NORVASC, ECOTRIN, COLEMAN, LASIX, NEURONTIN, REGLAN, PROTONIX, PERCOCET, ALDACTONE, DESYREL, KENALOG CREAM, AND HIS ANTIVIRALS WERE RESUMED. TODAY, WE WILL ADMINISTER COLCHICINE 0.6MG PO X 1 AND ADD NYSTATIN POWDER BID TO RIGHT AXILLA. OTHERWISE, WE PLAN TO FOLLOW-UP WITH AM LABS AND CONTINUE TO MONITOR. TIME SPENT ON CLINICAL ASSESSMENT, REVIWING LABS AND IMAGING, DECISION MAKING, AND DOCUMENTATION GREATER THAN 45 MINUTES. - Past Medical Family Social History Past Med/Fam/Surg Hx: No changes since H&P Allergies: Allergies No Known Drug Allergies Allergy (Verified 04/14/22 18:25) - Review of Systems ROS: No change since H&P - Vital Signs and I&O's Vital Signs: Temperature 98.4 F Pulse Rate [Apical] 47 Pulse Rate 43 Respiratory Rate 22 Blood Pressure [Left Arm] 121/61 Blood Pressure 128/62 O2 Sat by Pulse Oximetry 98 Intake and Output: Intake & Output 04/19/22 04/20/22 04/21/22 04/22/22 11:59 11:59 11:59 11:59 Intake Total 3638 / 3638 2948 / 2948 2994 / 2994 Output Total 2800 / 2800 3100 / 3100 4750 / 4750 Balance 838 / 838 -152 / -152 -1756 / -1756 - Physical Exam Oriented: Normal Eyes: Normal Ear: Normal Nose: Normal Throat: Normal Respiratory: Generalized, Diminished Cardiovascular: Bradycardia : Normal Auscultation: Bowel Sounds: Normal Palpation: Normal Tenderness: Normal Skin: Rash (REDNESS, YEAST RASH TO RIGHT AXILLA), Red, Tender, Hot Musculoskeletal: Right, Forearm, Wrist, Swelling, Tender Psychiatric: Normal Mood Description: Calm Affect: Normal Speech Pattern: Clear, Appropriate - Laboratory and Diagnostics Result Diagrams: 04/21/22 04:10 04/21/22 04:10 Labs: 04/18/22 10:24 Blood Blood Culture - Final Staphylococcus Haemolyticus 04/18/22 10:15 Blood Blood Culture - Preliminary 04/14/22 14:48 Blood Blood Culture - Final 04/14/22 15:22 Blood Blood Culture - Final Laboratory WBC 4.3 X10^3/uL (3.6-10.0) 04/21/22 04:10 RBC 2.99 X10^6/uL (4.7-6.0) L 04/21/22 04:10 Hgb 10.6 g/dL (13.5-18.0) L 04/21/22 04:10 Hct 31.4 % (42.0-54.0) L 04/21/22 04:10 MCV 104.9 fL (80.0-100.0) H 04/21/22 04:10 MCH 35.4 pg (27.0-34.0) H 04/21/22 04:10 MCHC 33.8 g/dL (33.0-35.0) 04/21/22 04:10 RDW 14.6 % (11.6-16.5) 04/21/22 04:10 Plt Count 260 X10^3/uL (150.0-450.0) 04/21/22 04:10 MPV 7.1 fL (7.4-11.0) L 04/21/22 04:10 Neut % (Auto) 71.7 % (42.0-75.0) 04/21/22 04:10 Lymph % (Auto) 11.9 % (21.0-51.0) L 04/21/22 04:10 [place] % (Auto) 11.4 % (0.0-13.0) 04/21/22 04:10 Eos % (Auto) 1.1 % (0.9-2.9) 04/21/22 04:10 Baso % (Auto) 3.9 % (0.2-1.0) H 04/21/22 04:10 Neut # (Auto) 3.1 x10^3/uL (2.2-4.8) 04/21/22 04:10 Lymph # (Auto) 0.5 X10^3/uL (1.3-2.9) L 04/21/22 04:10 [place] # (Auto) 0.5 x10^3/uL (0.3-0.8) 04/21/22 04:10 Eos # (Auto) 0.0 x10^3/uL (0.0-0.2) 04/21/22 04:10 Baso # (Auto) 0.2 X10^3/uL (0.0-0.1) H 04/21/22 04:10 Absolute Nucleated RBC 0.1 /100WBC 04/21/22 04:10 ESR 109 MM/HOUR (0-15) H 04/16/22 16:15 D-Dimer 2.51 ug/ml (0.0-0.57) H 04/14/22 14:48 Prot C Funct Activity 117 % (83-168) 04/16/22 16:15 APC Resistance Ratio 1.44 (>=2.00) L 04/16/22 16:15 Protein S Activity 108 % (66-143) 04/16/22 16:15 Antithrombin III Activ 102 % (76-128) 04/16/22 16:15 Sodium 139 mmol/L (136-145) 04/21/22 04:10 Corrected Sodium 140 mmol/L (136-145) 04/21/22 04:10 Potassium 5.8 mmol/L (3.5-5.1) H 04/21/22 04:10 Chloride 106 mmol/L (98-107) 04/21/22 04:10 Carbon Dioxide 28.7 mmol/L (21-32) 04/21/22 04:10 BUN 37 mg/dL (7-18) H 04/21/22 04:10 Creatinine 1.21 mg/dL (0.70-1.30) 04/21/22 04:10 Est GFR (MDRD) Af Amer > 60 (>60) 04/21/22 04:10 Est GFR (MDRD) Non-Af > 60 (>60) 04/21/22 04:10 Glucose 141 mg/dL (65-99) H 04/21/22 04:10 Lactic Acid 1.5 mmol/L (0.4-2.0) 04/14/22 14:48 Uric Acid 10.0 mg/dL (3.5-7.2) H 04/20/22 04:12 Calcium 8.6 mg/dL (8.5-10.1) 04/21/22 04:10 Corrected Calcium 9.6 mg/dL (8.5-10.1) 04/21/22 04:10 Magnesium 2.0 mg/dL (1.7-2.9) 04/20/22 04:12 Total Bilirubin 0.20 mg/dL (0.2-1.0) 04/21/22 04:10 AST 16 Units/L (15-37) 04/21/22 04:10 ALT 33 Units/L (12-78) 04/21/22 04:10 Alkaline Phosphatase 80 Units/L (46-116) 04/21/22 04:10 Creatine Kinase 76 Units/L (39-308) 04/15/22 02:16 Troponin I High Sens 17.5 ng/L (4.0-60.0) 04/15/22 02:16 C-Reactive Protein 63.90 mg/L (0-3.0) H 04/16/22 16:15 B-Natriuretic Peptide 672 pg/mL (0-79) H* 04/21/22 04:10 Total Protein 7.3 g/dL (6.4-8.2) 04/21/22 04:10 Albumin 2.8 g/dL (3.4-5.0) L 04/21/22 04:10 Globulin 4.5 g/dL (2.5-4.5) 04/21/22 04:10 Albumin/Globulin Ratio 0.6 Ratio (1.1-2.1) L 04/21/22 04:10 Homocysteine 21 umol/L (0-15) H 04/16/22 16:15 Thyroxine (T4) 7.7 ug/dL (4.7-13.3) 04/16/22 16:15 TSH 3rd Generation 1.059 uIU/mL (0.358-3.74) 04/16/22 16:15 Vancomycin Trough 17.4 ug/mL (15-20) 04/20/22 08:33 Digoxin 0.30 ng/mL (0.9-2) L 04/17/22 04:40 FREDO Screen None detected (None Detected) 04/16/22 16:15 FREDO Titer TNP 04/16/22 16:15 FREDO Pattern TNP 04/16/22 16:15 SARS-CoV-2 (PCR) Negative (NEGATIVE) 04/14/22 16:47 Influenza Type A (PCR) Negative (NEGATIVE) 04/14/22 16:47 Influenza Type B (PCR) Negative (NEGATIVE) 04/14/22 16:47 RSV (PCR) Negative (NEGATIVE) 04/14/22 16:47 - Plan (1) Bilateral lower leg cellulitis Status: Acute Plan: NORMAL SALINE AT K[facility], VANCOMYCIN 1G IV Q8H, TORADOL 15MG IV Q8H, DILAUDID 2MG IV Q4H PRN, ZOFRAN 4MG IV Q8H, LOVENOX 40MG SC DAILY, COLACE 100MG BID, MILK OF MAGNESIA 30ML PO BID, GENTAMICIN CREAM BID, ELIQUIS 10MG BID. MONITOR LABS (2) Pulmonary embolism Status: Acute Qualifiers: Pulmonary embolism type: unspecified Chronicity: acute Acute cor pulmonale presence: without acute cor pulmonale Qualified Code(s): I26.99 - Other pulmonary embolism without acute cor pulmonale Plan: continue p.o. Eliquis 10 mg twice daily. (3) Bradycardia Status: Acute (4) Gout flare Status: Acute Qualifiers: Gout site: wrist Encounter type: initial encounter Laterality: unspecified laterality Plan: COLCHICINE 0.6MG PO X 1 (5) Yeast dermatitis Status: Acute Plan: NYSTATIN POWDER BID (6) Chest pain, rule out acute myocardial infarction Status: Resolved (7) CHF (congestive heart failure) Status: Chronic Qualifiers: Heart failure type: unspecified Heart failure chronicity: chronic Qualified Code(s): I50.9 - Heart failure, unspecified (8) COPD (chronic obstructive pulmonary disease) Status: Chronic Qualifiers: COPD type: unspecified COPD Qualified Code(s): J44.9 - Chronic obstructive pulmonary disease, unspecified (9) HTN (hypertension) Status: Chronic Qualifiers: Hypertension type: primary hypertension Qualified Code(s): I10 - Essential (primary) hypertension (10) Renal disease Status: Chronic (11) HIV (human immunodeficiency virus infection) Status: Chronic Qualifiers: HIV symptom status: unspecified Qualified Code(s): B20 - Human immunodeficiency virus [HIV] disease
[2022-04-21] MEDS: COLACE CAP 100 MG PO SCH (20:43)
[2022-04-21] MEDS: MILK OF MAGNESIA PO SCH (20:45)
[2022-04-21] MEDS ORDERED: INDOCIN CAP 25 MG PO ONE (21:11)
[2022-04-22] MEDS: DILAUDID INJ IVP PRN ×5 (04:31→20:58)
[2022-04-22 05:19] LABS: BASOPHILS % (AUTO) 0.8 % (0.2-1.0); EOSINOPHILS % (AUTO) 0.6 % (0.9-2.9); HEMATOCRIT 31.8 % (42.0-54.0); HEMOGLOBIN 10.7 g/dL (13.5-18.0); LYMPHOCYTES % (AUTO) 21.1 % (21.0-51.0); MEAN CORPUSCULAR HEMOGLOBIN 35.4 pg (27.0-34.0); MEAN CORPUSCULAR HGB CONC 33.7 g/dL (33.0-35.0); MEAN CORPUSCULAR VOLUME 105.2 fL (80.0-100.0); MEAN PLATELET VOLUME 7.1 fL (7.4-11.0); MONOCYTES # (AUTO) 0.8 x10^3/uL (0.3-0.8); MONOCYTES % (AUTO) 16.9 % (0.0-13.0); NEUTROPHILS # (AUTO) 2.8 x10^3/uL (2.2-4.8); NEUTROPHILS % (AUTO) 60.6 % (42.0-75.0); RED BLOOD COUNT 3.02 X10^6/uL (4.7-6.0); RED CELL DISTRIBUTION WIDTH 14.5 % (11.6-16.5); WHITE BLOOD COUNT 4.7 X10^3/uL (3.6-10.0)
[2022-04-22] MEDS: PATIENT'S HOME MEDICATION PO SCH ×11 (05:20→21:08)
[2022-04-22] MEDS: PERCOCET TAB 5/325 MG PO PRN ×3 (05:21→17:58)
[2022-04-22 05:28] LABS: ALANINE AMINOTRANSFERASE 33 Units/L (12-78); ALBUMIN 2.8 g/dL (3.4-5.0); ALKALINE PHOSPHATASE 83 Units/L (46-116); ASPARTATE AMINO TRANSFERASE 17 Units/L (15-37); BLOOD UREA NITROGEN 34 mg/dL (7-18); CALCIUM 8.7 mg/dL (8.5-10.1); CARBON DIOXIDE 30.4 mmol/L (21-32); CHLORIDE 106 mmol/L (98-107); COR CA(FOR HYPOALB) 9.7 mg/dL (8.5-10.1); COR NA(FOR HYPERGLY) 140 mmol/L (136-145); SODIUM 139 mmol/L (136-145); TOTAL PROTEIN 7.2 g/dL (6.4-8.2); eGFR NON BLACK RACES > 60 (>60)
[2022-04-22 05:41] LABS: PLATELET MORPHOLOGY COMMENT NORMAL (NORMAL)
--- NOTE | 2022-04-22 06:09 | RAD ---
HISTORYShortness of breathSTUDYChest AP [id number]/2022FINDINGSTher e is a right-sided central line with its tip in the expected position of the superior vena cava. Heart is upper limits normal in size. No congestive heart failure is noted. No definite acute alveolar infiltrates or pleural effusions are identified. Bony thorax is unremarkable.IMPRESSIONNo significant abnormality identifiedElectronically signed by: MANE TOURE (Apr 22, 2022 06:07:56)
[2022-04-22] MEDS: NS 1,000 ML IV 1,000 ML IV SCH ×3 (06:50→20:20)
[2022-04-22] MEDS ORDERED: KAYEXALATE SUSP PO NR (09:00)
[2022-04-22] MEDS: CHLORTHALIDONE PO SCH (09:08)
[2022-04-22] MEDS: AQUAPHOR TOP SCH ×2 (09:08→20:53)
[2022-04-22] MEDS: DARUNAVIR ETHANOLATE 600 MG PO SCH ×2 (09:08→20:53)
[2022-04-22] MEDS: ELIQUIS PO SCH ×2 (09:09→20:50)
[2022-04-22] MEDS: GENTAMICIN TOPICAL CRM TOP SCH ×2 (09:09→20:50)
[2022-04-22] MEDS: INDOCIN CAP 25 MG PO SCH ×2 (09:09→20:53)
[2022-04-22] MEDS: KENALOG CREAM TOP SCH (09:09)
[2022-04-22] MEDS: NYSTATIN POWDER TOP SCH ×2 (09:10→20:51)
[2022-04-22] MEDS: LASIX PO SCH ×2 (09:10→20:50)
[2022-04-22] MEDS: VALGANCICLOVIR 450 MG PO SCH (09:11)
[2022-04-22 09:14] LABS: CREATININE 1.13 mg/dL (0.70-1.30); VANCOMYCIN,TROUGH 17.7 ug/mL (15-20)
[2022-04-22] MEDS: VANCOMYCIN IV *PREMIX 750 mg/150 ML BAG 750 MG/150 ML PIGGYBACK IV SCH ×2 (09:20→20:55)
--- NOTE | 2022-04-22 10:34 | PCM.PROG ---
Progress Note - Progress Note for Day of Date of Exam: 04/22/22 - Subjective Subjective: IS CURRENTLY INPATIENT STATUS FOR TREATMENT OF BILATERAL LOWER LEG CELLULITIS, GOUT FALRE, HYPERKALEMIA, AND A PULMONARY EMBOLISM. HE HAS A PMH OF CHF, COPD, HTN, RENAL DISEASE, AND HIV. CARDIOLOGY, , SAW HIM ON THE AND RECOMMENDS A [facility] CARDIAC WORK-UP AN OUTPATIENT, WHEN DISCHARGED FROM THE HOSPITAL. TODAY, HE IS ALERT AND ORIENTED, LYING IN BED ON MORNING ROUNDS. HE CONTINUES WITH COMPLAINTS OF WEAKNESS AND GENERALIZED PAIN THIS MORNING. HE ALSO CONTINUES TO HAVE REDNESS AND IRRITATION TO THE RIGHT AXILLA. HE DOES REPORT SLIGHT IMPROVEMENT IN SYMPTOMS TODAY. HE DENIES CHEST PAIN OR SHORTNESS OF BREATH AT THE PRESENT TIME. ON EXAMINATION, HE CONTINUES TO BE BRADYCARDIC WITH HR IN THE 40s-50s, BUT IT DOES OCCASIONALLY INCREASE TO THE 60s. BILATERAL LUNGS ARE NOTED WITH DIMINISHED LUNG SOUNDS THROUGHOUT. ABDOMEN IS ROUND, SOFT, AND NON-TENDER WITH NORMAL BOWEL SOUNDS NOTED IN ALL QUADRANTS. BILATERAL LOWER EXTREMITIES ARE NOTED WITH ERYTHEMA, EDEMA, AND TRACE EDEMA. ERYTHEMA HAS DECREASED SINCE WE LAST SAW HIM AND OVERALL LOOKS BETTER. HIS VITALS THIS MORNING ARE: 98.2-49-20-98%-147/65. HE IS UTILIZING OXYGEN VIA NASAL CANNULA AT 2 LPM. LABS WERE OBTAINED. WBC 4.7, RBC 3.02, HGB 10.7, HCT 31.8, SODIUM 139, POTASSIUM 5.8, BUN 34, CREATININE 1.10, GLUCOSE 123, URIC ACID 9.4, CALCIUM 8.7, BNP 529, TOTAL PROTEIN 7.2, ALBUMIN 2.8. BLOOD CULTURES REVEAL GROWTH OF STAPHY LOCOCCUS HAEMOLYTICUS. A CHEST XRAY WAS OBTAINED THIS MORNING AND REVEALED NO SIGNIFICANT ABNORMALITY WAS IDENTIFIED. HE IS CURRENTLY RECEIVING NORMAL SALINE AT [facility], VANCOMYCIN 1G IV Q8H, INDOCIN 50MG PO BID, DILAUDID 2MG IV Q4H PRN, ZOFRAN 4MG IV Q8H, ELIQUIS 10MG PO BID, GENTAMICIN CREAM BID, COLACE 100MG BID, MILK OF MAGNESIA 30ML PO BID, NYSTATIN POWDER BID. HIS HOME MEDICATIONS OF NORVASC, ECOTRIN, COLEMAN, LASIX, NEURONTIN, REGLAN, PROTONIX, PERCOCET, ALDACTONE, DESYREL, KENALOG CREAM, AND HIS ANTIVIRALS WERE RESUMED. TODAY, WE WILL ADMINISTER KAYEXELATE X 1 DOSE DUE TO HYPERKALEMIA. OTHERWISE, WE PLAN TO FOLLOW-UP WITH AM LABS AND CONTINUE TO MONITOR. TIME SPENT ON CLINICAL ASSESSMENT, REVIWING LABS AND IMAGING, DECISION MAKING, AND DOCUMENTATION GREATER THAN 45 MINUTES. - Past Medical Family Social History Past Med/Fam/Surg Hx: No changes since H&P Allergies: Allergies No Known Drug Allergies Allergy (Verified 04/14/22 18:25) - Review of Systems ROS: No change since H&P - Vital Signs and I&O's Vital Signs: Temperature 97.7 F Pulse Rate [Apical] 47 Pulse Rate 40 Respiratory Rate 20 Blood Pressure [Left Arm] 121/61 Blood Pressure 147/65 O2 Sat by Pulse Oximetry 98 Intake and Output: Intake & Output 04/19/22 04/20/22 04/21/22 04/22/22 11:59 11:59 11:59 11:59 Intake Total 3638 / 3638 2948 / 2948 2994 / 2994 2741 / 2741 Output Total 2800 / 2800 3100 / 3100 4750 / 4750 3500 / 3500 Balance 838 / 838 -152 / -152 -1756 / -1756 -759 / -759 - Physical Exam Oriented: Normal Eyes: Normal Ear: Normal Nose: Normal Throat: Normal Respiratory: Generalized, Diminished Cardiovascular: Bradycardia : Normal Auscultation: Bowel Sounds: Normal Palpation: Normal Tenderness: Normal Skin: Rash (REDNESS, YEAST RASH TO RIGHT AXILLA), Red, Tender, Hot Musculoskeletal: Right, Forearm, Wrist, Swelling, Tender Psychiatric: Normal Mood Description: Calm Affect: Normal Speech Pattern: Clear, Appropriate - Laboratory and Diagnostics Result Diagrams: 04/22/22 04:25 04/22/22 08:39 Labs: 04/18/22 10:15 Blood Blood Culture - Final Staphylococcus Haemolyticus 04/18/22 10:24 Blood Blood Culture - Final Staphylococcus Haemolyticus 04/14/22 14:48 Blood Blood Culture - Final 04/14/22 15:22 Blood Blood Culture - Final Laboratory WBC 4.7 X10^3/uL (3.6-10.0) 04/22/22 04:25 RBC 3.02 X10^6/uL (4.7-6.0) L 04/22/22 04:25 Hgb 10.7 g/dL (13.5-18.0) L 04/22/22 04:25 Hct 31.8 % (42.0-54.0) L 04/22/22 04:25 MCV 105.2 fL (80.0-100.0) H 04/22/22 04:25 MCH 35.4 pg (27.0-34.0) H 04/22/22 04:25 MCHC 33.7 g/dL (33.0-35.0) 04/22/22 04:25 RDW 14.5 % (11.6-16.5) 04/22/22 04:25 Plt Count 246 X10^3/uL (150.0-450.0) 04/22/22 04:25 Plt Count Comment Adequate (ADEQUATE) 04/22/22 04:25 MPV 7.1 fL (7.4-11.0) L 04/22/22 04:25 Neut % (Auto) 60.6 % (42.0-75.0) 04/22/22 04:25 Lymph % (Auto) 21.1 % (21.0-51.0) 04/22/22 04:25 [place] % (Auto) 16.9 % (0.0-13.0) H 04/22/22 04:25 Eos % (Auto) 0.6 % (0.9-2.9) L 04/22/22 04:25 Baso % (Auto) 0.8 % (0.2-1.0) 04/22/22 04:25 Neut # (Auto) 2.8 x10^3/uL (2.2-4.8) 04/22/22 04:25 Lymph # (Auto) 1.0 X10^3/uL (1.3-2.9) L 04/22/22 04:25 [place] # (Auto) 0.8 x10^3/uL (0.3-0.8) 04/22/22 04:25 Eos # (Auto) 0.0 x10^3/uL (0.0-0.2) 04/22/22 04:25 Baso # (Auto) 0.0 X10^3/uL (0.0-0.1) 04/22/22 04:25 Absolute Nucleated RBC 0.0 /100WBC 04/22/22 04:25 Plt Morphology Comment Normal (NORMAL) 04/22/22 04:25 RBC Morphology Abnormal (NORMAL) 04/22/22 04:25 Macrocytosis 1+ A 04/22/22 04:25 ESR 109 MM/HOUR (0-15) H 04/16/22 16:15 D-Dimer 2.51 ug/ml (0.0-0.57) H 04/14/22 14:48 Prot C Funct Activity 117 % (83-168) 04/16/22 16:15 APC Resistance Ratio 1.44 (>=2.00) L 04/16/22 16:15 Protein S Activity 108 % (66-143) 04/16/22 16:15 Antithrombin III Activ 102 % (76-128) 04/16/22 16:15 Sodium 139 mmol/L (136-145) 04/22/22 04:25 Corrected Sodium 140 mmol/L (136-145) 04/22/22 04:25 Potassium 5.8 mmol/L (3.5-5.1) H 04/22/22 04:25 Chloride 106 mmol/L (98-107) 04/22/22 04:25 Carbon Dioxide 30.4 mmol/L (21-32) 04/22/22 04:25 BUN 34 mg/dL (7-18) H 04/22/22 04:25 Creatinine 1.13 mg/dL (0.70-1.30) 04/22/22 08:39 Est GFR (MDRD) Af Amer > 60 (>60) 04/22/22 04:25 Est GFR (MDRD) Non-Af > 60 (>60) 04/22/22 04:25 Glucose 123 mg/dL (65-99) H 04/22/22 04:25 Lactic Acid 1.5 mmol/L (0.4-2.0) 04/14/22 14:48 Uric Acid 9.4 mg/dL (3.5-7.2) H 04/22/22 04:25 Calcium 8.7 mg/dL (8.5-10.1) 04/22/22 04:25 Corrected Calcium 9.7 mg/dL (8.5-10.1) 04/22/22 04:25 Magnesium 2.0 mg/dL (1.7-2.9) 04/20/22 04:12 Total Bilirubin 0.10 mg/dL (0.2-1.0) L 04/22/22 04:25 AST 17 Units/L (15-37) 04/22/22 04:25 ALT 33 Units/L (12-78) 04/22/22 04:25 Alkaline Phosphatase 83 Units/L (46-116) 04/22/22 04:25 Creatine Kinase 76 Units/L (39-308) 04/15/22 02:16 Troponin I High Sens 17.5 ng/L (4.0-60.0) 04/15/22 02:16 C-Reactive Protein 63.90 mg/L (0-3.0) H 04/16/22 16:15 B-Natriuretic Peptide 529 pg/mL (0-79) H* 04/22/22 04:25 Total Protein 7.2 g/dL (6.4-8.2) 04/22/22 04:25 Albumin 2.8 g/dL (3.4-5.0) L 04/22/22 04:25 Globulin 4.4 g/dL (2.5-4.5) 04/22/22 04:25 Albumin/Globulin Ratio 0.6 Ratio (1.1-2.1) L 04/22/22 04:25 Homocysteine 21 umol/L (0-15) H 04/16/22 16:15 Thyroxine (T4) 7.7 ug/dL (4.7-13.3) 04/16/22 16:15 TSH 3rd Generation 1.059 uIU/mL (0.358-3.74) 04/16/22 16:15 Vancomycin Trough 17.7 ug/mL (15-20) 04/22/22 08:39 Digoxin 0.30 ng/mL (0.9-2) L 04/17/22 04:40 FREDO Screen None detected (None Detected) 04/16/22 16:15 FREDO Titer TNP 04/16/22 16:15 FREDO Pattern TNP 04/16/22 16:15 SARS-CoV-2 (PCR) Negative (NEGATIVE) 04/14/22 16:47 Influenza Type A (PCR) Negative (NEGATIVE) 04/14/22 16:47 Influenza Type B (PCR) Negative (NEGATIVE) 04/14/22 16:47 RSV (PCR) Negative (NEGATIVE) 04/14/22 16:47 - Plan (1) Bilateral lower leg cellulitis Status: Acute Plan: NORMAL SALINE AT KVO, VANCOMYCIN 1G IV Q8H, TORADOL 15MG IV Q8H, DILAUDID 2MG IV Q4H PRN, ZOFRAN 4MG IV Q8H, LOVENOX 40MG SC DAILY, COLACE 100MG BID, MILK OF MAGNESIA 30ML PO BID, GENTAMICIN CREAM BID, ELIQUIS 10MG BID, NYSTATIN BID. MONITOR LABS (2) Pulmonary embolism Status: Acute Qualifiers: Pulmonary embolism type: unspecified Chronicity: acute Acute cor pulmonale presence: without acute cor pulmonale Qualified Code(s): I26.99 - Other pulmonary embolism without acute cor pulmonale Plan: continue p.o. Eliquis 10 mg twice daily. (3) Bradycardia Status: Acute (4) Gout flare Status: Acute Qualifiers: Gout site: wrist Encounter type: initial encounter Laterality: unspecified laterality Plan: COLCHICINE 0.6MG PO X 1 (5) Yeast dermatitis Status: Acute Plan: NYSTATIN POWDER BID (6) Hyperkalemia Status: Acute (7) Chest pain, rule out acute myocardial infarction Status: Resolved (8) CHF (congestive heart failure) Status: Chronic Qualifiers: Heart failure type: unspecified Heart failure chronicity: chronic Qualified Code(s): I50.9 - Heart failure, unspecified (9) COPD (chronic obstructive pulmonary disease) Status: Chronic Qualifiers: COPD type: unspecified COPD Qualified Code(s): J44.9 - Chronic obstructive pulmonary disease, unspecified (10) HTN (hypertension) Status: Chronic Qualifiers: Hypertension type: primary hypertension Qualified Code(s): I10 - Essential (primary) hypertension (11) Renal disease Status: Chronic (12) HIV (human immunodeficiency virus infection) Status: Chronic Qualifiers: HIV symptom status: unspecified Qualified Code(s): B20 - Human immunodeficiency virus [HIV] disease
[2022-04-22] MEDS ORDERED: NS 250 ML IV 250 ML IV ONE (19:59)
[2022-04-22] MEDS ORDERED: VANCOMYCIN HCL ONE (19:59)
[2022-04-22] MEDS: MILK OF MAGNESIA PO SCH (20:51)
[2022-04-22] MEDS: COLACE CAP 100 MG PO SCH (20:52)
[2022-04-23] MEDS: PERCOCET TAB 5/325 MG PO PRN ×2 (04:15→10:30)
[2022-04-23 05:25] LABS: EOSINOPHILS % (AUTO) 0.4 % (0.9-2.9); HEMATOCRIT 32.2 % (42.0-54.0); HEMOGLOBIN 10.8 g/dL (13.5-18.0); LYMPHOCYTES # (AUTO) 1.2 X10^3/uL (1.3-2.9); LYMPHOCYTES % (AUTO) 24.5 % (21.0-51.0); MEAN CORPUSCULAR HGB CONC 33.5 g/dL (33.0-35.0); MEAN CORPUSCULAR VOLUME 104.6 fL (80.0-100.0); MEAN PLATELET VOLUME 7.2 fL (7.4-11.0); MONOCYTES # (AUTO) 0.7 x10^3/uL (0.3-0.8); MONOCYTES % (AUTO) 14.6 % (0.0-13.0); NEUTROPHILS # (AUTO) 2.9 x10^3/uL (2.2-4.8); NEUTROPHILS % (AUTO) 59.5 % (42.0-75.0); RED BLOOD COUNT 3.08 X10^6/uL (4.7-6.0); RED CELL DISTRIBUTION WIDTH 14.8 % (11.6-16.5); WHITE BLOOD COUNT 4.9 X10^3/uL (3.6-10.0)
[2022-04-23] MEDS: PATIENT'S HOME MEDICATION PO SCH ×7 (05:27→09:06)
[2022-04-23 05:39] LABS: ALANINE AMINOTRANSFERASE 31 Units/L (12-78); ALKALINE PHOSPHATASE 91 Units/L (46-116); ASPARTATE AMINO TRANSFERASE 17 Units/L (15-37); BLOOD UREA NITROGEN 35 mg/dL (7-18); CALCIUM 8.6 mg/dL (8.5-10.1); CARBON DIOXIDE 30.5 mmol/L (21-32); CHLORIDE 104 mmol/L (98-107); COR CA(FOR HYPOALB) 9.4 mg/dL (8.5-10.1); CREATININE 1.22 mg/dL (0.70-1.30); SODIUM 139 mmol/L (136-145); TOTAL PROTEIN 7.3 g/dL (6.4-8.2); URIC ACID 9.3 mg/dL (3.5-7.2); eGFR NON BLACK RACES > 60 (>60)
[2022-04-23] MEDS: DILAUDID INJ IVP PRN ×2 (05:50→09:37)
--- NOTE | 2022-04-23 06:12 | RAD ---
HISTORYF/U SOB Relevant Clinical InformationSTUDYCHEST, 1 [id number]/2022FINDINGSThe trachea is midline. A right central line unchanged with tip in SVC. The cardiac silhouette is unremarkable. The lungs are clear without focal infiltrate or effusion. The bony thorax is unremarkable.IMPRESSIONNo acute cardiopulmonary findings .Electronically signed by: Raphael Rodríguez (Apr 23, 2022 06:11:08)
[2022-04-23 07:03] LABS: PROTHROMBIN G20210A Negative
[2022-04-23] MEDS: AQUAPHOR TOP SCH (08:59)
[2022-04-23] MEDS: ELIQUIS PO SCH (09:01)
[2022-04-23] MEDS: LASIX PO SCH (09:01)
[2022-04-23] MEDS: CHLORTHALIDONE PO SCH (09:01)
[2022-04-23] MEDS: DARUNAVIR ETHANOLATE 600 MG PO SCH (09:03)
[2022-04-23] MEDS: VALGANCICLOVIR 450 MG PO SCH (09:04)
[2022-04-23] MEDS: INDOCIN CAP 25 MG PO SCH (09:04)
[2022-04-23] MEDS: GENTAMICIN TOPICAL CRM TOP SCH (09:07)
[2022-04-23] MEDS: KENALOG CREAM TOP SCH (09:07)
[2022-04-23] MEDS: NYSTATIN POWDER TOP SCH (09:08)
[2022-04-23] MEDS: VANCOMYCIN IV *PREMIX 750 mg/150 ML BAG 750 MG/150 ML PIGGYBACK IV SCH (09:22)
[2022-04-23 11:57] VITALS: BP 141/63
== END 2022-04-23 12:19 | disposition home health service (06) | DRG 602 ==
LOC: MED/SURG 14:07 → ER 14:07 → OBSVTOIN 17:43 → ICU 17:44
PROVIDERS: ADMIT Internal Medicine; ATTEND Internal Medicine
DX: L30.8 Other specified dermatitis; I12.9 Hypertensive chronic kidney disease with stage 1 through stage 4 chronic kidney disease, or unspecified chronic kidney disease; R79.1 Abnormal coagulation profile; B95.7 Other staphylococcus as the cause of diseases classified elsewhere; R00.1 Bradycardia, unspecified; I87.2 Venous insufficiency (chronic) (peripheral); R26.89 Other abnormalities of gait and mobility; L03.116 Cellulitis of left lower limb; B20 Human immunodeficiency virus [HIV] disease; E87.5 Hyperkalemia; R91.8 Other nonspecific abnormal finding of lung field; M10.9 Gout, unspecified; I50.9 Heart failure, unspecified; T82.524A Displacement of infusion catheter, initial encounter; R07.9 Chest pain, unspecified; I48.91 Unspecified atrial fibrillation; E66.8 Other obesity; F17.210 Nicotine dependence, cigarettes, uncomplicated; Z95.0 Presence of cardiac pacemaker; N18.9 Chronic kidney disease, unspecified; J44.9 Chronic obstructive pulmonary disease, unspecified; Z82.49 Family history of ischemic heart disease and other diseases of the circulatory system; I11.0 Hypertensive heart disease with heart failure; R53.1 Weakness; L03.115 Cellulitis of right lower limb; M79.601 Pain in right arm; M25.531 Pain in right wrist; I26.99 Other pulmonary embolism without acute cor pulmonale